=== PATIENT | male | born 1990 | race Asian ===

== ENCOUNTER 2022-12-04 08:46 | Emergency (ER) | payer SELFPAY ==
[2022-12-04] VITALS (21 sets, daily range): BP systolic 109–133; BP diastolic 70–97; PULSE 62–92; RESP 12–22; TEMP 36.8; O2SAT 91–100
--- NOTE | ~2022-12-04 | XR_ITS ---
EXAMINATION: XR chest 1V portable 12/04/2022 09:17 INDICATION: Shortness of breath PROCEDURE: AP portable chest COMPARISON: No prior studies for comparison. FINDINGS: The lungs are clear. The cardiomediastinal silhouette is within normal limits. There are no pleural effusions. There is no pneumothorax suspected. IMPRESSION: 1: NO ACUTE CARDIOPULMONARY DISEASE. Reviewed, dictated and finalized at location [facility].
--- NOTE | 2022-12-04 08:51 | ECG_ITS ---
Measurements Intervals [place] Rate: 69 P: 69 [place]: 144 QRS: 56 QRSD: 108 T: 33 QT: 369 QTc: 396 Interpretive Statements ALTERNATE LEAD PLACEMENT: Posterior V1: V7, V2: V8, V3: V9, V4: V4, V5: V5, V6: V6 SINUS RHYTHM BASELINE ARTIFACT- V7 ATYPICAL ECG NO PREVIOUS ECG AVAILABLE FOR COMPARISON Electronically Signed On 12-04-2022 11:41:08 CDT by Adolph Benedict D.O.
--- NOTE | 2022-12-04 08:55 | ED.AMS ---
HPI - Altered Mental Status General Chief Complaint: Shortness of Breath/Dyspnea Stated Complaint: resp distress Time Seen by Provider: 12/04/22 08:53 History of Present Illness HPI narrative: 32-year-old male presented emergency department for evaluation of worsening shortness of breath. Patient reports approximate 4 days ago he was diagnosed with influenza B. Patient states he was discharged home with albuterol breathing treatment but was able to use it this morning. Patient presented to [place] urgent care for complaints of worsening shortness of breath. Patient was found to be 68% on room air. EMS was called. EMS states patient was tenorio and ashen appearing upon arrival. Patient was treated with an albuterol neb and placed on oxygen. Upon arrival to emergency department patient states he does feel significantly improved. Patient was saturating at 98 to 100% on 2 L of oxygen by nasal cannula. Patient states he does feel improved. Patient denies any prior significant past medical history. 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 Review of Systems Review of Systems: All systems reviewed & are unremarkable except as noted in HPI and below Exam Narrative: APPEARANCE: Well appearing, no pain, no distress, well-nourished. HEAD: normocephalic, atraumatic. EYES: PERRLA/EOMI, conjunctivae clear. NOSE: Normal no drainage EARS:TMS clear with good light reflex. THROAT: Pharynx clear, no exudate. NECK: Supple. No adenopathy, no masses. RESPIRATORY: Airway patent, respirations nonlabored. Inspiratory and expiratory wheeze on auscultation CARDIOVASCULAR: Regular rate and rhythm without murmurs rubs or gallops. ABDOMINAL: Soft, nontender, nondistended, normal bowel sounds MUSCULOSKELETAL: Moves all extremities. Strength/ROM intact, No edema, No calf tenderness. NEURO: Alert. Cranial nerves II through XII intact. Good gait. Good coordination SKIN: Warm, dry. Normal Color Course Course Emergency Course: 32-year-old male with respiratory distress. Improved upon arrival to the ED. Chest x-ray was ordered. Patient was ordered 5 mg of nebulized albuterol. Patient was treated with additional albuterol treatment upon arrival to the ED and on reexamination patient dyspnea improved. Patient was maintaining a pulse ox of 96% on room air. When patient ambulated he states he had no shortness of breath and his pulse ox was approximately 93%. Patient was provided additional prescription for albuterol inhaler along with a AeroChamber. Patient was educated on reasons to return to the emergency room. All questions and concerns were addressed. Vital Signs Vital signs: Vital Signs Pulse Rate 83 12/04/22 08:51 Respiratory Rate 16 12/04/22 08:51 Pulse Oximetry 100 12/04/22 08:51 Temperature 98.3 F 12/04/22 09:03 Pulse Rate 62 12/04/22 11:46 Respiratory Rate 15 12/04/22 11:46 Blood Pressure 109/70 12/04/22 11:46 Pulse Oximetry 95 12/04/22 11:46 Oxygen Delivery High Flow Nasal Cannula 12/04/22 09:03 Oxygen Flow Rate 2 12/04/22 09:03 MDM - Altered Mental Status Lab Data Attestation: I reviewed the patient's lab results. 12/04/22 08:59 12/04/22 08:59 Labs: Lab Results 12/04/22 Range/Units 08:59 WBC 13.4 H (4.5-10.0) K/mm3 RBC 5.58 (4.6-6.20) M/mm3 Hgb 16.4 (14.0-18.0) g/dL Hct 48.5 (42.0-52.0) % MCV 86.9 (80-100) fl MCH 29.4 (26-34) pg MCHC 33.8 (32-36) g/dl RDW 12.2 (11.5-14.5) % Plt Count 273 (150-375) k/mm3 MPV 9.9 (7.4-10.4) fl Immature Gran % (Auto) 0.4 (0-0.5) % Neut % (Auto) 75.1 H (45.5-73.1) % Lymph % (Auto) 13.4 L (18.3-44.2) % [place] % (Auto) 4.7 (2.6-8.5) % Eos % (Auto) 5.9 H (0-4.4) % Baso % (Auto) 0.5 (0.2-1.2) % Lymph # (Auto) 1.79 (0.9-3.2) K/mm3 [place] # (Auto) 0.6 (0.1-0.6) K/mm3 Eos # (Auto) 0.8 H (0-0.3) K/mm3 Baso # (Auto)
[2022-12-04] MEDS: ALBUTEROL SULFATE NEB 2.5 MG/3 ML INH 5 MG INHALATION (08:58)
[2022-12-04 09:09] LABS: Basophils Absolute Auto 0.1 K/mm3 (0.0-0.1); Basophils Percent Auto 0.5 % (0.2-1.2); Eosinophils Absolute Auto 0.8 K/mm3 (0-0.3); Eosinophils Percent Auto 5.9 % (0-4.4); Hematocrit 48.5 % (42.0-52.0); Hemoglobin 16.4 g/dL (14.0-18.0); Immature Granulocyte Absolute 0.05 K/mm3 (0.00-0.031); Immature Granulocyte Percent A 0.4 % (0-0.5); Lymphocytes Absolute Auto 1.79 K/mm3 (0.9-3.2); Lymphocytes Percent Auto 13.4 % (18.3-44.2); Mean Corpuscular HGB Conc 33.8 g/dl (32-36); Mean Corpuscular Hemoglobin 29.4 pg (26-34); Mean Corpuscular Volume 86.9 fl (80-100); Mean Platelet Volume 9.9 fl (7.4-10.4); Monocytes Absolute Auto 0.6 K/mm3 (0.1-0.6); Monocytes Percent Auto 4.7 % (2.6-8.5); Neutrophils Percent Auto 75.1 % (45.5-73.1); Platelet Count Result 273 k/mm3 (150-375); Red Blood Count 5.58 M/mm3 (4.6-6.20); Red Cell Distribution Width 12.2 % (11.5-14.5); White Blood Count 13.4 K/mm3 (4.5-10.0)
[2022-12-04 09:20] LABS: Alanine Aminotransferase 16 U/L (6-50); Alkaline Phosphatase 115 U/L (38-126); Anion Gap 9 mmol/L (8-16); Aspartate Amino Transferase 31 U/L (17-59); Bilirubin,Total 0.9 mg/dL (0.2-1.3); Blood Urea Nitrogen 8 mg/dL (9-20); Carbon Dioxide 29 mmol/L (22-30); Chloride 101 mmol/L (98-107); Estimated CRCL calculation 103 ml/min; Estimated Glomerular Filt Rate > 60; Glucose 117 mg/dL (65-110); Potassium 4.2 mmol/L (3.4-5.0); Sodium 139 mmol/L (137-145)
[2022-12-04 09:43] LABS: Influenza A QL RT-PCR Negative (Negative); Influenza B QL RT-PCR Negative (Negative); RSV RNA, RT-PCR Negative (Negative); SARS-CoV-2 RNA PCR Negative (Negative)
--- NOTE | 2022-12-04 11:59 | PC.NURSE ---
ambulation pulse ox 92%. pt states he feels much better and less SOB than when he came in.
== END 2022-12-04 12:34 | disposition home or self-care (01) ==
PROVIDERS: Emergency Provider Emergency Medicine
DX: J10.1 Influenza due to other identified influenza virus with other respiratory manifestations (principal); R06.2 Wheezing; Z20.822 Contact with and (suspected) exposure to COVID-19
CPT/HCPCS: 36415; 71045; 80053; 85025; 87637; 93005; 94640; 94664; 99283

== ENCOUNTER 2022-12-06 00:46 | Inpatient (IN) | payer SELFPAY ==
--- NOTE | 2022-12-04 08:51 | ECG_ITS ---
Measurements Intervals [place] Rate: 82 P: 76 [place]: 141 QRS: 72 QRSD: 97 T: 32 QT: 358 QTc: 418 Interpretive Statements SINUS RHYTHM POSSIBLE LEFT ATRIAL ENLARGEMENT BASELINE ARTIFACT- I, II, AVR, AVL, AVF, V1 BORDERLINE ECG NO PREVIOUS ECG AVAILABLE FOR COMPARISON Electronically Signed On 12-09-2022 8:28:31 CDT by Adolph Benedict D.O.
[2022-12-06] VITALS (27 sets, daily range): BP systolic 104–145; BP diastolic 60–85; PULSE 71–106; RESP 13–34; TEMP 35.8–36.6; O2SAT 80–100
--- NOTE | ~2022-12-06 | XR_ITS ---
EXAMINATION: XR chest 1V portable 12/06/2022 03:38 INDICATION: Dyspnea PROCEDURE: AP portable chest COMPARISON: 12/04/2022 FINDINGS: The lungs are clear. The cardiomediastinal silhouette is within normal limits. There are no pleural effusions. There is no pneumothorax suspected. IMPRESSION: 1: NO ACUTE CARDIOPULMONARY DISEASE. Reviewed, dictated and finalized at location [facility].
--- NOTE | 2022-12-06 00:56 | ECG_ITS ---
Measurements Intervals [place] Rate: 90 P: 79 [place]: 140 QRS: 76 QRSD: 97 T: 40 QT: 364 QTc: 447 Interpretive Statements SINUS RHYTHM WITH SINUS ARRHYTHMIA BASELINE ARTIFACT- I, II, III, AVL, AVF, V2 NORMAL ECG COMPARED TO ECG 12/04/2022 11:28:34 SINUS ARRHYTHMIA NOW PRESENT Electronically Signed On 12-06-2022 8:03:17 CDT by Adolph Benedict D.O.
[2022-12-06] MEDS: SODIUM CHLORIDE 0.9% IV 2,000 ML 999 ML IV CONT (00:59)
[2022-12-06] MEDS: ALBUTEROL SULFATE NEB 2.5 MG/3 ML INH 10 MG INHALATION ×2 (01:00→01:51)
[2022-12-06] MEDS: EPINEPHrine HCL INJ 1 MG/ML AMPUL 0.3 MG IM (01:00)
[2022-12-06] MEDS: MAGNESIUM SULF 2 GM/WATER 50ML 2 GM/50 ML BAG IVPB (01:01)
[2022-12-06] MEDS: IPRATROPIUM BR 0.02% INH SOLN 0.5 MG/2.5 ML VIAL 1 MG INHALATION (01:01)
[2022-12-06 01:04] LABS: Basophils Absolute Auto 0.1 K/mm3 (0.0-0.1); Basophils Percent Auto 0.5 % (0.2-1.2); Eosinophils Absolute Auto 0.5 K/mm3 (0-0.3); Eosinophils Percent Auto 2.1 % (0-4.4); Hemoglobin 17.6 g/dL (14.0-18.0); Immature Granulocyte Absolute 0.11 K/mm3 (0.00-0.031); Immature Granulocyte Percent A 0.5 % (0-0.5); Lymphocytes Absolute Auto 2.14 K/mm3 (0.9-3.2); Lymphocytes Percent Auto 9.4 % (18.3-44.2); Mean Corpuscular HGB Conc 33.8 g/dl (32-36); Mean Corpuscular Hemoglobin 29.6 pg (26-34); Mean Corpuscular Volume 87.4 fl (80-100); Mean Platelet Volume 9.9 fl (7.4-10.4); Monocytes Absolute Auto 1.1 K/mm3 (0.1-0.6); Neutrophils Absolute Auto 18.7 K/mm3 (1.3-6.7); Neutrophils Percent Auto 82.5 % (45.5-73.1); Platelet Count Result 352 k/mm3 (150-375); Red Blood Count 5.95 M/mm3 (4.6-6.20); Red Cell Distribution Width 12.3 % (11.5-14.5); White Blood Count 22.7 K/mm3 (4.5-10.0)
[2022-12-06 01:10] LABS: Alveolar/Arterial O2 Gradient 132.9 mmHg; Base Excess ABG -3.9 mEq/l (+/-2.0); Fractional Inspired Oxygen 100 %; HCO3 ABG 23.1 mEq/l (22.0-26.0); Oxygen Saturation ABG 99.9 % (95.0-100.0); Oxyhemoglobin 98.1 % THb (90.0-100.0); PCO2 ABG 49.1 mmHg (35.0-45.0); PO2 FiO2 Ratio Arterial Blood 5.31 %; Total Hemoglobin 16.4 g/dL (12.0-18.0)
[2022-12-06 01:12] LABS: Device NON-INVASIVE VENT; Modified Allen's Test Pass; Non-Invasive Inspiratory Pressure 16 CMH2O; Non-Invasive Vent Rate 12 /MIN; Site Drawn RIGHT RADIAL; pH ABG 7.291 (7.350-7.450)
[2022-12-06 01:13] LABS: Non-Invasive Expiratory Pressure 6 CMH2O
[2022-12-06 01:15] LABS: Anion Gap 10 mmol/L (8-16); Blood Urea Nitrogen 10 mg/dL (9-20); Calcium 9.5 mg/dL (8.4-10.2); Carbon Dioxide 30 mmol/L (22-30); Chloride 99 mmol/L (98-107); Estimated Glomerular Filt Rate > 60; Glucose 133 mg/dL (65-110); Potassium 4.2 mmol/L (3.4-5.0); Sodium 139 mmol/L (137-145)
--- NOTE | 2022-12-06 03:00 | ED.GENADULT ---
HPI - General Adult General Chief complaint: Shortness of Breath/Dyspnea Stated complaint: SOB, asthma Time Seen by Provider: 12/06/22 01:06 History of Present Illness HPI narrative: This is a 32-year-old male history of asthma presenting to ED in respiratory extremis. One word dyspnea. Patient was seen in our hospital 2 days ago for similar symptoms after being diagnosed with influenza B and an outside facility. Related Data Allergies Allergy/AdvReac Type Severity Reaction Status Date / Time No Known Allergies Allergy Verified 12/06/22 01:14 [facility] Past Medical History Medical History Asthma Exam Narrative: APPEARANCE: Patient is pale diaphoretic, one-word dyspnea Head: atraumatic. EYES: EOMI, NOSE: Atraumatic NECK: Trachea midline RESPIRATORY: accessory muscle use, belly breathing, tripoding, wheezing in all hill CARDIOVASCULAR: tachycardic ABDOMINAL: Non-distended MUSCULOSKELETAl: No obvious deformities NEURO: Alert. Moving 4/4 extremities SKIN:: clammy and diaphoretic PSYCHIATRIC: Normal affect Course Vital Signs Vital signs: Vital Signs Temperature 98 F 12/06/22 00:53 Pulse Rate 94 12/06/22 00:53 Respiratory Rate 32 H 12/06/22 00:53 Pulse Oximetry 80 L 12/06/22 00:53 Oxygen Delivery Room Air 12/06/22 00:53 Temperature 98 F 12/06/22 00:53 Pulse Rate 100 12/06/22 03:25 Respiratory Rate 21 H 12/06/22 03:25 Blood Pressure 142/84 H 12/06/22 03:25 Pulse Oximetry 100 12/06/22 03:25 Oxygen Delivery Nasal Cannula 12/06/22 03:25 Oxygen Flow Rate 3 12/06/22 03:25 Medical Decision Making [facility] Narrative Medical decision making narrative: -Presentation: 32-year-old male presenting in respiratory extremis. Patient was immediately given 0.3 mg IM epi, given continuous nebulizer treatments, dexamethasone, and magnesium. Patient was placed on BiPAP. -DDX includes but is not limited to: Asthma exacerbation due to medication noncompliance, viral syndrome -Co-morbidities complicating care: asthma -Social determinants of health: patient works at [employer], lives with roommates -External Chart Review: review of ER notes from December 04, 2022 -Hx from independent Sources: patient's roommate states that he had sudden onset of shortness of breath. -Discussion of Management/Consultants: Antony-hospitalist -Independent interpretation of studies: white blood cell count of 22.7. likely due to steroids. ABG showed acute respiratory acidosis with hyperoxia Oxygen has been decreased. metabolic panel unremarkable. Chest x-ray is unremarkable. Independent EKG interpretation: Rhythm [sinus], Rate [90], [place] -[normal], [place] -[normal], QRS [narrow], QTC [normal], T waves -[negative for concerning inversions], ST Segments - [Negative for concerning elevations] Final interpretations: [Normal Sinus Rhythm] Dx tests considered but not ordered: none -Procedures: none -Interventions: BiPAP, 0.3 mg IM epi, DuoNeb nebulizer treatment x2 hours, 2g magnesium, dexamethasone, 2 L normal saline -Shared decision making / Disposition: after 2 hours the patient's condition had improved. He will be trialed off of the BiPAP. Patient will placed in observation. -RX Vital Signs Vital Signs: Vital Signs Temperature 98 F 12/06/22 00:53 Pulse Rate 94 12/06/22 00:53 Respiratory Rate 32 H 12/06/22 00:53 Pulse Oximetry 80 L 12/06/22 00:53 Oxygen Delivery Room Air 12/06/22 00:53 Temperature 98 F 12/06/22 00:53 Pulse Rate 100 12/06/22 03:25 Respiratory Rate 21 H 12/06/22 03:25 Blood Pressure 142/84 H 12/06/22 03:25 Pulse Oximetry 100 12/06/22 03:25 Oxygen Delivery Nasal Cannula 12/06/22 03:25 Oxygen Flow Rate 3 12/06/22 03:25 Lab Data 12/06/22 00:58 12/06/22 00:58 Labs: Lab Results 12/06/22 12/06/22 Range/Units 00:58 01:01
[2022-12-06] MEDS: LACTATED RINGERS 1,000 ML 125 ML IV CONT ×2 (04:15→12:02)
--- NOTE | 2022-12-06 05:20 | ADMGEN ---
This patient, Rylie Nathan, was admitted to [facility] Surg Room 329-01. Patient/family oriented to hospital policies and general routines including ID bracelet, bed and alarms, visiting hours, pain management, procedures, bathroom and other care routines, personal items, smoking policy, room service/diet, and visiting hours. Information on how to activate the Rapid Response Team has been discussed. Patient/Family are encouraged to report perceived risks to care and to ask questions if they do not understand what they are told or what they should do.
[2022-12-06] MEDS: methylPREDNISolone SOD SUCC 125 MG VIAL 60 MG IV PUSH ×4 (06:09→23:13)
[2022-12-06] MEDS: ALBUTEROL SULFATE NEB 2.5 MG/3 ML INH INHALATION ×2 (08:19→20:01)
[2022-12-06] MEDS: IPRATROPIUM BR 0.02% INH SOLN 0.5 MG/2.5 ML VIAL INHALATION ×2 (08:19→20:01)
--- NOTE | 2022-12-06 14:59 | PM.IMHP ---
H&P: HPI History of Present Illness Date/Time: 12/06/22 14:59 Chief Complaint: Dyspnea Narrative: Patient is a 32-year-old male with no past medical history who presents to ED with complaints of dyspnea. Patient recently was diagnosed with influenza B on 11/30/2022 at an outpatient visit. he then presented on 12/04/2022 at [facility] and was found to have 68% O2 saturation on room air and sent to the ED. During the 12/04/2022 ER visit patient's labs are stable, flu negative, RSV negative, COVID negative, chest x-ray negative, was weaned to room air. he was discharged home with a p.r.n. albuterol inhaler. He returns on 12/06/2022 with dyspnea and wheezing. patient now has a negative chest x-ray, leukocytosis at 22,000 likely from steroids, given treatment with BiPAP, DuoNebs x2, magnesium 2 g, dexamethasone, 2 L normal saline. He has been weaned to 2 L oxygen by nasal cannula. Patient will continue q.6 hours DuoNeb, Solu-Medrol 60 mg Q 6 hours and being admitted for observation for further management of acute asthma exacerbation secondary to influenza B. of note patient has no family history of pulmonary issues. He started smoking at age of 23 1-2 cigarettes per day. he does not have a PCP. 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 he denies any chemical exposures. He is originally from [facility]. He does not report any childhood asthma or breathing problems. Review of Systems Review of Systems: Constitutional: No Fever, No Chills, No Night Sweats, No Fatigue, No Malaise ENT/Mouth: No Hearing Changes, No Ear Pain, No Nasal Congestion, No Sinus Pain, No Hoarseness, No sore throat, No Rhinorrhea, No Swallowing Difficulty Eyes: No Eye Pain, No Redness, No Vision Changes Cardiovascular: No Chest Pain, No Palpitations, No Dyspnea on Exertion, No Orthopnea, No Claudication, No Edema Respiratory: endorses dyspnea, wheezing Gastrointestinal: No Nausea, No Vomiting, No Diarrhea, No Constipation, No Abdominal Pain, No Heartburn, No Hematochezia, No Melena Genitourinary: No Dysuria, No Urinary Frequency, No Hematuria, No Urinary Incontinence, No Urgency Musculoskeletal: No Arthralgias, No Myalgias, No Joint Swelling, No Joint Stiffness, No Back Pain Skin: No Skin Lesions, No Pruritis, No Hair Changes Neuro: No Weakness, No Numbness, No Paresthesias, No Loss of Consciousness, No Syncope, No Dizziness, No Headache Psych: No Anxiety/Panic, No Depression, No Insomnia Heme: No Bruising, No Bleeding Lymph: No Adenopathy Endocrine: No Polyuria, No Polydipsia, No Temperature Intolerance [facility] Past Medical History Medical History Asthma Social History Social History Smoking packs per day: 0.25 Smoking cigarettes per day: 5.0 Smoking status: Former smoker Tobacco type: cigarettes Smoking end date: 10/24/22 Alcohol intake: never Substance use: never Lack of Transportation: YES Lack of Food: Never True Current Housing: I Have Housing Concerned About Future Housing: No Difficulty Paying Gas/Electric Bills: No Difficulty Paying for Meds: No Currently Unemployed: No Education: Trade/Vocational Certificate Difficulty w/ Childcare or Family Care: No Spiritual care concerns: No Comments occupation: [employer] Meds Home Medications and Allergies Home Medications Medication Instructions Recorded Confirmed Type albuterol sulfate 90 mcg/actuation 1 inh inhalation Q6-8H PRN 12/04/22 12/06/22 Rx aerosol inhaler shortness of breath or wheezing #6.7 grams Allergies Allergy/AdvReac Type Severity Reaction Status Date / Time No Known Allergies Allergy Verified 12/06/22 01:14 Vital Signs Vital Signs - 24 hr 12/06/22 00:53 12/06/22 00:55 12/06/22 00:56 Temperature 36.6 C Pulse Rate 94 Respiratory Rate 32 H Blood Pressure Pulse Oximetry 80 L 8
--- NOTE | 2022-12-06 17:47 | PC.NURSE ---
3675 PT found on RA stated he removed o2 before eating pulse ox measuring 93% on RA, no distress, no SOB
[2022-12-07 01:48] VITALS: PULSE 82; RESP 18
[2022-12-07] MEDS: IPRATROPIUM BR 0.02% INH SOLN 0.5 MG/2.5 ML VIAL INHALATION ×2 (01:48→09:05)
[2022-12-07] MEDS: ALBUTEROL SULFATE NEB 2.5 MG/3 ML INH INHALATION ×2 (01:48→09:05)
[2022-12-07 02:05] VITALS: PULSE 85; RESP 18
[2022-12-07 05:38] VITALS: BP 124/58; PULSE 82; RESP 14; TEMP 36.1; O2SAT 100
[2022-12-07] MEDS: methylPREDNISolone SOD SUCC 125 MG VIAL 60 MG IV PUSH (05:56)
[2022-12-07 06:43] LABS: Hematocrit 44.9 % (42.0-52.0); Hemoglobin 14.7 g/dL (14.0-18.0); Mean Corpuscular HGB Conc 32.7 g/dl (32-36); Mean Corpuscular Hemoglobin 28.6 pg (26-34); Mean Corpuscular Volume 87.4 fl (80-100); Mean Platelet Volume 10.5 fl (7.4-10.4); Platelet Count Result 258 k/mm3 (150-375); Red Blood Count 5.14 M/mm3 (4.6-6.20); White Blood Count 21.2 K/mm3 (4.5-10.0)
[2022-12-07 06:49] LABS: Anion Gap 10 mmol/L (8-16); Blood Urea Nitrogen 14 mg/dL (9-20); Carbon Dioxide 24 mmol/L (22-30); Chloride 104 mmol/L (98-107); Estimated Glomerular Filt Rate > 60; Glucose 149 mg/dL (65-110); Magnesium 2.5 mg/dL (1.6-2.3); Sodium 138 mmol/L (137-145)
[2022-12-07 09:05] VITALS: PULSE 80; RESP 16; O2SAT 93
[2022-12-07 09:17] VITALS: PULSE 83; RESP 16
--- NOTE | 2022-12-07 11:02 | PM.DS ---
DS: Admitting Diagnosis Discharge Date 12/07/22 Admitting Diagnosis Asthma exacerbation DS: Discharge Diagnosis Discharge Diagnosis (1) Asthma with exacerbation: Qualifiers: Asthma persistence: intermittent Asthma severity: mild Qualified Code(s): J45.21 - Mild intermittent asthma with (acute) exacerbation Code(s): J45.901 - Unspecified asthma with (acute) exacerbation Status: Acute Plan # acute asthma exacerbation secondary to? influenza B - no history of asthma, likely has asthma exacerbation secondary to influenza B that was diagnosed last week - in the ED received 2 L LR bolus, magnesium sulfate 2 g, dexamethasone 10 mg, epinephrine once, stat DuoNeb - repeat flu test negative, no indication for Tamiflu at this time - steroids: Continue Solu-Medrol 60 mg q.6 hours, will discharge with Medrol Dosepak - Rx Flovent inhaler and continue as needed albuterol rescue inhaler.? he will need to establish care with PCP and have outpatient PFTs - patient encouraged to have smoking cessation, smokes 1-2 cigarettes for the last 9 years - patient likely has mild intermittent asthma underlying as this is new asthma diagnosis - weaned to room air Diet:?Regular DVT prophylaxis:??ambulatory Code status:??full code Disposition:??home today DS: Summary Hospital Course Reason for hospitalization: Asthma exacerbation Hospital Course: Patient is a 32-year-old male with no past medical history who presents to ED with complaints of dyspnea.? Patient recently was diagnosed with influenza B on 11/30/2022 at an outpatient visit. he then presented on 12/04/2022? at [facility] and was found to have 68% O2 saturation on room air and sent to the ED. During the 12/04/2022 ER visit patient's labs are stable, flu negative, RSV negative, COVID negative, chest x-ray negative, was weaned to room air.? he was discharged home with a p.r.n. albuterol inhaler.? He returns on 12/06/2022 with dyspnea and wheezing.? patient now has a negative chest x-ray, leukocytosis at 22,000 likely from steroids, given treatment with BiPAP, DuoNebs x2, magnesium 2 g, dexamethasone,? 2 L normal saline.? He has been weaned to 2 L oxygen by nasal cannula.? Patient will continue q.6 hours DuoNeb, Solu-Medrol 60 mg Q 6 hours and being admitted for observation for further management of acute asthma exacerbation secondary to influenza B.? of note patient has no family history of pulmonary issues.? He started smoking at age of 23 1-2 cigarettes per day.? he does not have a PCP.? 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 he denies any chemical exposures.? He is originally from [facility].? He does not report any childhood asthma or breathing problems. Patient was hospitalized from 12/06-12/07 for asthma exacerbation. He had significant wheezing worse on the left lung which improved with IV steroids and nebulizer treatments. He has been weaned to room air. He will be sent home with Medrol Dosepak to complete steroid taper. Rx or Flovent given to prevent asthma exacerbation. He already has a rescue inhaler albuterol which he may continue as needed. We discussed importance of smoking cessation. patient to follow-up and establish care with PCP to have outpatient PFTs. At time of discharge patient's vitals stable, labs stable, patient is stable for discharge home. Patient understands and agrees with plan. Status at Discharge Cognitive/behavioral status at discharge: Baseline Time Spent with Patient Time attestation: Total time spent providing and/or coordinating discharge services: 35 min Exam Narrative: - GENERAL: Pleasant male no acute distress. Well-nourished. - EYES: EOMI. Anicteric. - HENT: Moist mucous membranes. - LUNGS: Clear to auscultation bilaterally, no wheezing, rhonchi, or rales. Breathing comfortably on room air - CARDIOVASCULAR: Regular rate and rhythm. No murmur. No JVD. - ABDOMEN: Soft, non-tender and non-distended. No palpable masses. - EXTREMITIES: No
== END 2022-12-07 12:30 | disposition home or self-care (01) | DRG 141 ==
LOC: ANHED 04:01 → ANH3MEDSUR 04:52
PROVIDERS: Admitting Provider Internal Medicine; Emergency Provider Emergency Medicine; Visit Provider Student in an Organized Health Care Education/Training Program
DX: J45.21 Mild intermittent asthma with (acute) exacerbation (principal); J10.1 Influenza due to other identified influenza virus with other respiratory manifestations; F17.210 Nicotine dependence, cigarettes, uncomplicated
CPT/HCPCS: 36415; 36600; 71045; 80048; 82805; 83735; 85025; 85027; 93005; 94002; 94640; 96361; 96365; 96372; 96375; 99285; G0378; J0171; J1100; J2930; J3475; J7030; J7120

== ENCOUNTER 2023-01-27 19:52 | Emergency (ER) | payer SELFPAY ==
[2023-01-27] VITALS (9 sets, daily range): BP systolic 117–143; BP diastolic 70–85; PULSE 75–100; RESP 20–25; O2SAT 100
--- NOTE | ~2023-01-27 | XR_ITS ---
XR chest 1V portable DATE: 01/27/2023 20:36 INDICATION: Dyspnea TECHNIQUE: Portable upright AP chest on 01/27/2023 at 2035 hours COMPARISON: 12/06/2022 portable AP chest FINDINGS: Normal heart size. No hilar or mediastinal enlargement. No pulmonary infiltrate or consolid ation, pleural effusion or pulmonary vascular congestion or pneumothorax. Mild thoracic dextroscoliosis. IMPRESSION: No active cardiopulmonary disease Reviewed, dictated and finalized at location A.
--- NOTE | 2023-01-27 20:09 | ECG_ITS ---
Measurements Intervals [place] Rate: 70 P: 79 [place]: 143 QRS: 75 QRSD: 98 T: 47 QT: 377 QTc: 408 Interpretive Statements SINUS RHYTHM WITH SINUS ARRHYTHMIA ST ELEVATION IN DIFFUSE LEADS, PROBABLY EARLY REPOLARIZATION BASELINE ARTIFACT- I, AVR, V4-V6 BORDERLINE ECG COMPARED TO ECG 12/06/2022 01:19:00 NO SIGNIFICANT CHANGES Electronically Signed On 01-27-2023 21:40:46 CDT by Adolph Benedict D.O.
[2023-01-27] MEDS: SODIUM CHLORIDE 0.9% IV 1,000 ML 999 ML IV CONT (20:18)
[2023-01-27] MEDS: MAGNESIUM SULF 2 GM/WATER 50ML 2 GM/50 ML BAG IVPB (20:19)
[2023-01-27] MEDS: ALBUTEROL SULFATE NEB 2.5 MG/3 ML INH 10 MG INHALATION ×2 (20:27→23:07)
[2023-01-27] MEDS: IPRATROPIUM BR 0.02% INH SOLN 0.5 MG/2.5 ML VIAL 1.5 MG INHALATION ×2 (20:27→23:08)
[2023-01-27 20:43] LABS: Basophils Absolute Auto 0.1 K/mm3 (0.0-0.1); Basophils Percent Auto 0.6 % (0.2-1.2); Eosinophils Absolute Auto 0.4 K/mm3 (0-0.3); Eosinophils Percent Auto 4.6 % (0-4.4); Hematocrit 46.6 % (42.0-52.0); Hemoglobin 15.6 g/dL (14.0-18.0); Immature Granulocyte Absolute 0.02 K/mm3 (0.00-0.031); Immature Granulocyte Percent A 0.2 % (0-0.5); Lymphocytes Absolute Auto 1.72 K/mm3 (0.9-3.2); Lymphocytes Percent Auto 17.9 % (18.3-44.2); Mean Corpuscular HGB Conc 33.5 g/dl (32-36); Mean Corpuscular Volume 86.6 fl (80-100); Monocytes Absolute Auto 0.4 K/mm3 (0.1-0.6); Neutrophils Percent Auto 72.7 % (45.5-73.1); Platelet Count Result 242 k/mm3 (150-375); Red Blood Count 5.38 M/mm3 (4.6-6.20); Red Cell Distribution Width 12.2 % (11.5-14.5); White Blood Count 9.6 K/mm3 (4.5-10.0)
[2023-01-27 20:55] LABS: Anion Gap 9 mmol/L (8-16); Blood Urea Nitrogen 11 mg/dL (9-20); Calcium 8.9 mg/dL (8.4-10.2); Carbon Dioxide 27 mmol/L (22-30); Chloride 102 mmol/L (98-107); Estimated Glomerular Filt Rate > 60; Glucose 104 mg/dL (65-110); Potassium 3.7 mmol/L (3.4-5.0); Sodium 138 mmol/L (137-145)
--- NOTE | 2023-01-27 22:48 | ED.GENADULT ---
HPI - General Adult General Chief complaint: Asthma Stated complaint: asthma Time Seen by Provider: 01/27/23 20:06 History of Present Illness HPI narrative: This is a 33-year-old male with history of asthma presenting with the asthma exacerbation. Patient has been having worsening difficulty breathing over the last 2 days. He has been using his albuterol inhaler without improvement. He denies fever chills productive cough or chest pain. Patient has a rescue inhaler but no maintenance medications. Related Data Allergies Allergy/AdvReac Type Severity Reaction Status Date / Time No Known Allergies Allergy Verified 01/27/23 19:52 [facility] Past Medical History Medical History Asthma Social History Social History Smoking packs per day: 0.25 Smoking cigarettes per day: 5.0 Smoking status: Former smoker Tobacco type: cigarettes Smoking end date: 10/24/22 Alcohol intake: never Substance use: never Lack of Transportation: YES Lack of Food: Never True Current Housing: I Have Housing Concerned About Future Housing: No Difficulty Paying Gas/Electric Bills: No Difficulty Paying for Meds: No Currently Unemployed: No Education: Trade/Vocational Certificate Difficulty w/ Childcare or Family Care: No Spiritual care concerns: No Exam Narrative: APPEARANCE: 3-4 word dyspnea Head: atraumatic. EYES: EOMI, NOSE: Atraumatic NECK: Trachea midline RESPIRATORY: diffuse wheezing, tripoding CARDIOVASCULAR: RRR, ABDOMINAL: Non-distended MUSCULOSKELETAl: No obvious deformities NEURO: Alert. Moving 4/4 extremities SKIN:: Warm, dry. Normal color PSYCHIATRIC: Normal affect Course Vital Signs Vital signs: Vital Signs Pulse Rate 87 01/27/23 20:05 Respiratory Rate 25 H 01/27/23 20:05 Blood Pressure 134/81 01/27/23 20:05 Pulse Oximetry 100 01/27/23 20:05 Oxygen Delivery Nasal Cannula 01/27/23 20:05 Oxygen Flow Rate 2 01/27/23 20:05 Pulse Rate 96 01/28/23 00:01 Respiratory Rate 18 01/28/23 00:01 Blood Pressure 138/85 01/27/23 21:16 Pulse Oximetry 100 01/27/23 21:16 Oxygen Delivery Nasal Cannula 01/27/23 20:05 Oxygen Flow Rate 2 01/27/23 20:05 Medical Decision Making [facility] Narrative Medical decision making narrative: -Presentation: 33-year-old male is well known to our emergency department for frequent asthma exacerbations presenting with difficulty breathing. He is having 3-4 word dyspnea and is tripoding. Patient is given an hour long breathing treatment, magnesium and dexamethasone. 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 Metabolic panel unremarkable. Chest x-ray unremarkable. Independent EKG interpretation: Rhythm [sinus], Rate 70, [place] -[normal], [place] -[normal], QRS [narrow], QTC [normal], T waves -[negative for concerning inversions], ST Segments - [Negative for concerning elevations] Final interpretations: [Normal Sinus Rhythm] -Discussion of Management/Consultants: none -Dx tests considered but not ordered: none -Procedures: none -Interventions: hour long DuoNeb treatment, magnesium, dexamethasone, 1 L fluids -Shared decision making / Disposition: Patient was re-evaluated multiple times. After 1st treatment he was still wheezing. He was given another hour long treatment. After that he was clinically improved but still has some wheezing. I offered admission and he declined. He has been encouraged to return to the emergency department if he starts having difficulty breathing as opposed to waiting till
--- NOTE | 2023-01-27 23:10 | PC.NURSE ---
This RN assumed care of patient.
[2023-01-28 00:01] VITALS: PULSE 96; RESP 18
[2023-01-28 01:11] VITALS: PULSE 92; RESP 18; O2SAT 96
[2023-01-28 01:18] VITALS: PULSE 92; RESP 19; O2SAT 97
== END 2023-01-28 01:28 | disposition home or self-care (01) ==
PROVIDERS: Emergency Provider Emergency Medicine
DX: J45.901 Unspecified asthma with (acute) exacerbation (principal); Z87.891 Personal history of nicotine dependence
CPT/HCPCS: 36415; 71045; 80048; 85025; 93005; 94640; 96361; 96365; 96375; 99284; J1100; J3475; J7030

== ENCOUNTER 2023-11-21 07:06 | Emergency (ER) | payer SELFPAY ==
--- NOTE | ~2023-11-21 | XR_ITS ---
XR chest 1V portable DATE: 11/21/2023 07:51 INDICATION: Cough, shortness of breath, congestion for one week TECHNIQUE: Portable AP chest on November 21, 2023 at 0750 hours COMPARISON: 01/27/2023 portable AP chest at 2034 FINDINGS: Normal heart size. No hilar or mediastinal enlargement. No pulmonary infiltrate or consolid ation, pleural effusion or pulmonary vascular congestion or pneumothorax. IMPRESSION: No active cardiopulmonary disease Reviewed, dictated and finalized at location A.
[2023-11-21 07:11] VITALS: BP 112/86; PULSE 68; RESP 16; TEMP 36.4; O2SAT 99
--- NOTE | 2023-11-21 07:51 | ED.EYEPROB ---
HPI - Eye Problem General Chief complaint: Eye Problems Stated complaint: l eye redness Time Seen by Provider: 11/21/23 07:11 History of Present Illness HPI Narrative: 33-year-old male presenting to the emergency department for evaluation of multiple complaints. Patient does describe redness and irritation of his left eye. Patient also describes increased cough congestion and shortness of breath over the last week. Patient states he is no longer smoker and has no prior history of asthma but does describe seasonal allergies. Patient does not take anything for his seasonal allergies. Related Data Allergies Allergy/AdvReac Type Severity Reaction Status Date / Time No Known Allergies Allergy Verified 11/21/23 07:14 Review of Systems Review of Systems: All systems reviewed & are unremarkable except as noted in HPI and below PMFSH Past Medical History Medical History Asthma Social History Social History Smoking packs per day: 0.25 Smoking cigarettes per day: 5.0 Smoking status: Former smoker Tobacco type: cigarettes Smoking end date: 10/24/22 Alcohol intake: never Substance use: never Lack of Transportation: YES Lack of Food: Never True Current Housing: I Have Housing Concerned About Future Housing: No Difficulty Paying Gas/Electric Bills: No Difficulty Paying for Meds: No Currently Unemployed: No Education: Trade/Vocational Certificate Difficulty w/ Childcare or Family Care: No Spiritual care concerns: No Exam Narrative: APPEARANCE: Well appearing, no pain, no distress, well-nourished. HEAD: normocephalic, atraumatic. EYES: Conjunctiva injection of the left eye with no appearing discharge NOSE: Normal no drainage EARS:TMS clear with good light reflex. THROAT: Pharynx clear, no exudate. NECK: Supple. No adenopathy, no masses. RESPIRATORY: Airway patent, respirations nonlabored. Clear to auscultation bilaterally, no rales, rhonchi, wheezing. CARDIOVASCULAR: Regular rate and rhythm without murmurs rubs or gallops. ABDOMINAL: Soft, nontender, nondistended, normal bowel sounds MUSCULOSKELETAL: Moves all extremities. Strength/ROM intact, No edema, No calf tenderness. NEURO: Alert. Cranial nerves II through XII intact. Grossly intact SKIN: Warm, dry. Normal Color Course Vital Signs Vital signs: Vital Signs Temperature 97.6 F 11/21/23 07:11 Pulse Rate 68 11/21/23 07:11 Respiratory Rate 16 11/21/23 07:11 Blood Pressure 112/86 11/21/23 07:11 Pulse Oximetry 99 11/21/23 07:11 Oxygen Delivery Room Air 11/21/23 07:11 Temperature 97.6 F 11/21/23 07:11 Pulse Rate 72 11/21/23 08:12 Respiratory Rate 16 11/21/23 08:12 Blood Pressure 112/86 11/21/23 07:11 Pulse Oximetry 99 11/21/23 07:11 Oxygen Delivery Room Air 11/21/23 07:11 MDM - Eye Problem MDM Narrative Medical decision making narrative: 33-year-old male presented to the emergency department for evaluation for cough congestion and eye irritation. Left eye irritation and is being treated as a bacterial conjunctivitis. Patient had a small amount of wheeze on his exam and this was improved with a breathing treatment. Patient was prescribed albuterol inhaler, advised to take Zyrtec or Claritin for seasonal allergies and patient was started on antibiotic ointment for suspected conjunctivitis. Patient was encouraged to have close follow-up with primary care physician. All questions concerns were addressed. Differential Diagnosis Differential diagnosis: Likely corneal abrasion and conjunctivitis Lab Data Attestation: I reviewed the patient's lab results. Labs: Lab Results 11/21/23 Range/Units 07:36 Influenza A (RT-PCR) Negative (Negative) Influenza B (RT-PCR) Negative (Negative) RSV (RT-PCR) Negative (Negative) SARS-CoV-2 RNA (RT-PCR) Negative
[2023-11-21] MEDS: ALBUTEROL SULFATE NEB 2.5 MG/3 ML INH INHALATION (07:52)
[2023-11-21 07:54] VITALS: PULSE 60; RESP 18
[2023-11-21 08:12] VITALS: PULSE 72; RESP 16
[2023-11-21 08:19] LABS: Strep Group A RT-PCR NOT DETECTED (Negative)
[2023-11-21 08:30] LABS: Influenza A QL RT-PCR Negative (Negative); Influenza B QL RT-PCR Negative (Negative); RSV RNA, RT-PCR Negative (Negative); SARS-CoV-2 RNA PCR Negative (Negative)
== END 2023-11-21 09:12 | disposition home or self-care (01) ==
PROVIDERS: Emergency Provider Emergency Medicine
DX: H10.9 Unspecified conjunctivitis (principal); J45.909 Unspecified asthma, uncomplicated
CPT/HCPCS: 71045; 87637; 87651; 94640; 99283

== ENCOUNTER 2023-11-24 22:36 | Inpatient (IN) | payer SELFPAY ==
[2023-11-24] VITALS (8 sets, daily range): BP systolic 117–135; BP diastolic 77–95; PULSE 90–96; RESP 19–24; O2SAT 91–100
--- NOTE | ~2023-11-24 | XR_ITS ---
Portable chest x-ray Comparison: 11/21/2023 Clinical History: Dyspnea Findings: Lungs are clear, without focal consolidation or pleural effusion. Cardiomediastinal silho uette is stable. Bones and soft tissues are unremarkable. Impression: Normal chest. Reviewed, dictated and finalized at location . Impression: Normal chest.
--- NOTE | 2023-11-24 22:43 | PC.NURSE ---
Patient taking shallow short breaths during intake and can only speak 1-2 words at a time. Oxygen 87%-92% of room. Patient immediately taken back to ED room 1.
[2023-11-24] MEDS: IPRATROPIUM 0.5 MG/ALBUTEROL SULFATE 2.5 MG AMPUL.NEB 3 ML 12 ML INHALATION (22:55)
[2023-11-24] MEDS: dexAMETHasone SOD PHOS INJ 10 MG/ML 1 ML VIAL IV PUSH (23:02)
[2023-11-24] MEDS: MAGNESIUM SULF 2 GM/WATER 50ML 2 GM/50 ML BAG IVPB (23:02)
--- NOTE | 2023-11-24 23:30 | ED.SOB ---
HPI - SOB/Dyspnea General Chief Complaint: Shortness of Breath/Dyspnea Stated Complaint: sob Time Seen by Provider: 11/24/23 23:23 History of Present Illness HPI Narrative: 33-year-old male with history of asthma presents to the emergency department for congestion and eye redness for 4 days with shortness of breath that developed this evening. Patient states he gets similar symptoms every spring and fall. He states that his eyes have been red and itchy and have some crusting in the morning when he wakes up. He denies eye pain, vision changes, headache, pain with extraocular movements, foreign body sensation. States he has been using his inhaler with some relief. He does not have a cough, sore throat, otalgia, fever. He does not wear contacts. Related Data Allergies Allergy/AdvReac Type Severity Reaction Status Date / Time No Known Allergies Allergy Verified 11/21/23 07:14 Review of Systems Review of Systems: CONSTITUTIONAL: Denies fever, chills, or sweats. EYES: Denies visual changes, redness, or discharge. ENT: See HPI CARDIOVASCULAR: Denies chest pain, palpitations, or edema. RESPIRATORY: See HPI GASTROINTESTINAL: Denies abdominal pain, nausea, vomiting, or diarrhea. GENITOURINARY: Denies dysuria or hematuria. SKIN: Denies rash or itching. MUSCULOSKELETAL: Denies back pain, joint pain, or myalgia. NEUROLOGIC: Denies headache, numbness, or weakness. PSYCHIATRIC: Denies anxiety or depression. FORMERLY [facility], 1928–1983 Past Medical History Medical History Asthma Social History Social History Smoking packs per day: 0.2 Smoking cigarettes per day: 4.0 Years smoked: 8 Smoking pack-years: 1.60 Smoking status: Former smoker Tobacco type: cigarettes Smoking end date: 10/24/22 Alcohol intake: never Substance use: never Do You Feel Safe in your Home?: Yes Lack of Transportation: No Lack of Food: Never True Current Housing: I Have Housing Concerned About Future Housing: No Difficulty Paying Gas/Electric Bills: No Difficulty Paying for Meds: No Currently Unemployed: No Education: High School Diploma/GED Difficulty w/ Childcare or Family Care: No Spiritual care concerns: No Exam Narrative: GENERAL: Well-appearing, well-nourished, and in no acute distress. HEAD: Normocephalic, atraumatic. EYES: PERRLA and EOMI. Bilateral conjunctivae erythematous and injected. No ciliary flush. No foreign body. Peripheral vision intact. Small amount of clear drainage bilaterally. No surrounding cellulitis or pain with EOMs. Fluorescein staining shows no lesions, ulcerations or abrasions to cornea. No foreign body. ENT: Nares clear, no rhinorrhea or epistaxis. Mucous membranes moist. Posterior pharynx with mild erythema, uvula midline, no tonsillar hypertrophy or exudates. Bilateral TMs are tenorio nonbulging with normal canals. NECK: Supple. CHEST: Patient satting 95-100% on room air upon my evaluation. He does have expiratory wheezing throughout all lung hill. No rales or rhonchi. HEART: Regular rate and rhythm. No murmur heard. Normal peripheral pulses. ABDOMEN: Soft, nontender, nondistended, normal active bowel sounds. EXTREMITIES: Normal range of motion. No edema. SKIN: Warm, dry, no rash. NEURO: No focal deficits. Alert and oriented x3 Course Vital Signs Vital signs: Vital Signs Pulse Rate 90 11/24/23 22:43 Respiratory Rate 19 11/24/23 22:43 Blood Pressure 135/77 11/24/23 22:43 Pulse Oximetry 93 11/24/23 22:43 Oxygen Delivery Nasal Cannula 11/24/23 22:43 Oxygen Flow Rate 2 11/24/23 22:43 Temperature 98.0 F 11/25/23 14:00 Pulse Rate 82 11/25/23 14:00 Respiratory Rate 16 11/25/23 14:00 Blood Pressure 136/82 11/25/23 14:00 Pulse Oximetry 96 11/25/23 14:00 Oxygen Delivery Room Air 11/25/23 08:00 Oxygen Flow Rate 2 11/24/23 22:43
[2023-11-25] VITALS (18 sets, daily range): BP systolic 119–136; BP diastolic 74–100; PULSE 76–104; RESP 16–20; TEMP 36.1–36.7; O2SAT 90–96; BMI 22.6
[2023-11-25] MEDS: FLUORESCEIN SOD 1 MG/STRIP EACH EYE (00:10)
[2023-11-25] MEDS: TETRACAINE HCL 0.5% OPHTH SOLN 4 ML BTL 1 DROP EACH EYE (00:10)
[2023-11-25 00:48] LABS: Influenza A QL RT-PCR Negative (Negative); Influenza B QL RT-PCR Negative (Negative); RSV RNA, RT-PCR Negative (Negative); SARS-CoV-2 RNA PCR Negative (Negative)
--- NOTE | 2023-11-25 01:10 | ECG_ITS ---
SEE SCANNED COPY FOR CONFIRMED REPORT. MTDD
[2023-11-25 01:25] LABS: Alveolar/Arterial O2 Gradient 43.7 mmHg; Base Excess ABG -1.1 mEq/l (+/-2.0); Fractional Inspired Oxygen 21 %; HCO3 ABG 23.3 mEq/l (22.0-26.0); Oxygen Content ABG 19.5 %vol (16.0-22.0); Oxygen Saturation ABG 91.5 % (95.0-100.0); PCO2 ABG 37.9 mmHg (35.0-45.0); PO2 ABG 60.6 mmHg (80.0-100.0); PO2 FiO2 Ratio Arterial Blood 2.89 %; Total Hemoglobin 15.4 g/dL (12.0-18.0); pH ABG 7.406 (7.350-7.450)
[2023-11-25 01:33] LABS: Basophils Absolute Auto 0.1 K/mm3 (0.0-0.1); Basophils Percent Auto 0.3 % (0.2-1.2); Eosinophils Absolute Auto 0.3 K/mm3 (0-0.3); Eosinophils Percent Auto 1.6 % (0-4.4); Hematocrit 44.3 % (42.0-52.0); Hemoglobin 15.2 g/dL (14.0-18.0); Immature Granulocyte Absolute 0.06 K/mm3 (0.00-0.031); Immature Granulocyte Percent A 0.4 % (0-0.5); Lymphocytes Absolute Auto 1.06 K/mm3 (0.9-3.2); Lymphocytes Percent Auto 6.5 % (18.3-44.2); Mean Corpuscular HGB Conc 34.3 g/dl (32-36); Mean Corpuscular Hemoglobin 29.5 pg (26-34); Mean Corpuscular Volume 85.9 fl (80-100); Mean Platelet Volume 9.7 fl (7.4-10.4); Monocytes Absolute Auto 0.2 K/mm3 (0.1-0.6); Monocytes Percent Auto 1.4 % (2.6-8.5); Neutrophils Absolute Auto 14.6 K/mm3 (1.3-6.7); Neutrophils Percent Auto 89.8 % (45.5-73.1); Platelet Count Result 241 k/mm3 (150-375); Red Blood Count 5.16 M/mm3 (4.6-6.20); Red Cell Distribution Width 12.1 % (11.5-14.5); White Blood Count 16.3 K/mm3 (4.5-10.0)
[2023-11-25 01:34] LABS: Modified Allen's Test Pass; Site Drawn RIGHT RADIAL
[2023-11-25] MEDS: IPRATROPIUM 0.5 MG/ALBUTEROL SULFATE 2.5 MG AMPUL.NEB 3 ML INHALATION ×5 (01:36→13:43)
[2023-11-25 01:44] LABS: Alanine Aminotransferase 12 U/L (6-50); Alkaline Phosphatase 121 U/L (38-126); Anion Gap 8 mmol/L (4-12); Aspartate Amino Transferase 25 U/L (17-59); Bilirubin,Total 0.5 mg/dL (0.2-1.3); Blood Urea Nitrogen 14 mg/dL (9-20); Calcium 9.2 mg/dL (8.4-10.2); Carbon Dioxide 27 mmol/L (22-30); Chloride 100 mmol/L (98-107); Estimated Glomerular Filt Rate > 60; Glucose 142 mg/dL (65-110); Potassium 3.8 mmol/L (3.4-5.0); Sodium 135 mmol/L (137-145)
--- NOTE | 2023-11-25 02:33 | PM.IMHP ---
H&P: HPI History of Present Illness Date/Time: 11/25/23 02:33 Chief Complaint: sob Narrative: This is a 33-year-old male with past medical history significant for asthma, patient presents to the emergency room due to shortness of breath, nasal congestion, dry cough, shortness of breath, wheezing, I would redness, watery eyes, eye itchiness, for several days had prior presentation to emergency room as well for same reason. Portable chest x-ray Comparison: 11/21/2023 Clinical History: Dyspnea Findings:? Lungs are clear, without focal consolidation or pleural effusion.? Cardiomediastinal silhouette is stable. Bones and soft tissues are unremarkable. ? Impression: ? Normal chest. Review of Systems Review of Systems: nasal congestion, eye redness, eye itchiness, shortness of breath, dry cough, wheezing Constitutional: Constitutional: Denies chills, Denies fever(s), Denies malaise and Denies night sweats Eyes: Eyes: Reports eye discharge and Reports itchy eyes ENT: Reports nasal congestion Cardiovascular: Cardiovascular: Denies chest pain, Denies radiating jaw, neck or arm pain and Denies palpitations Respiratory: Respiratory: Reports cough, Reports dyspnea and Reports wheezing Gastrointestinal: Gastrointestinal: Denies abdominal pain, Denies diarrhea, Denies nausea and Denies vomiting Genitourinary: Genitourinary: Denies dysuria Musculoskeletal: Musculoskeletal: Denies myalgias Integumentary/Breasts: Skin/Breast: Denies rash Neurologic: Denies focal weakness and Denies Sensory deficit (Neuro) Psychiatric: Psychiatric: Reports no additional psychiatric complaints and Reports as per HPI Endocrine: Endocrine: Denies cold intolerance, Denies fatigue, Denies flushing, Denies heat intolerance, Denies polyphagia, Denies polydipsia, Denies polyuria and Denies palpitations Hematologic/Lymphatic: Hematologic/Lymphatic: Reports no additional hematologic/lymphatic complaints and Reports as per HPI Allergic/Immunologic: Allergic/Immunologic: Reports no additional allergic/immunologic complaints and Reports as per HPI PMFSH Past Medical History Medical History Asthma Social History Social History Smoking packs per day: 0.2 Smoking cigarettes per day: 4.0 Years smoked: 8 Smoking pack-years: 1.60 Smoking status: Former smoker Tobacco type: cigarettes Smoking end date: 10/24/22 Alcohol intake: never Substance use: never Do You Feel Safe in your Home?: Yes Lack of Transportation: No Lack of Food: Never True Current Housing: I Have Housing Concerned About Future Housing: No Difficulty Paying Gas/Electric Bills: No Difficulty Paying for Meds: No Currently Unemployed: No Education: High School Diploma/GED Difficulty w/ Childcare or Family Care: No Spiritual care concerns: No Meds Home Medications and Allergies Home Medications Medication Instructions Recorded Confirmed Type albuterol sulfate 90 mcg/actuation 2 puff inhalation QID PRN 11/25/23 Rx aerosol inhaler shortness of breath or wheezing #8.5 grams fluticasone furoate 100 1 inh inhalation DAILY asthma #60 11/25/23 Rx mcg-vilanterol 25 mcg/dose ea inhalation powder (Breo Ellipta) fluticasone propionate 50 1 spray intranasal BID #16 grams 11/25/23 Rx mcg/actuation nasal spray,suspension (Flonase Allergy Relief) loratadine 10 mg tablet 10 mg PO QAM #90 tabs 11/25/23 Rx polymyxin B sulfate 10,000 1 drp EACH EYE Q3H conjunctivitis 11/25/23 Rx unit-trimethoprim 1 mg/mL eye drops #10 mL Allergies Allergy/AdvReac Type Severity Reaction Status Date / Time No Known Allergies Allergy Verified 11/21/23 07:14 Vital Signs Vital Signs - 24 hr 11/24/23 22:43 11/24/23 22:55 11/24/23 22:49 Pulse Rate 90 Respiratory Rate 19 24 H Blood Pressure 135/77 Pu
--- NOTE | 2023-11-25 04:32 | ADMGEN ---
This patient, Rylie Nathan, was admitted to [facility] Surg Room 326-01. Patient/family oriented to hospital policies and general routines including ID bracelet, bed and alarms, visiting hours, pain management, procedures, bathroom and other care routines, personal items, smoking policy, room service/diet, and visiting hours. Information on how to activate the Rapid Response Team has been discussed. Patient/Family are encouraged to report perceived risks to care and to ask questions if they do not understand what they are told or what they should do.
[2023-11-25] MEDS: POLYMYXIN/TRIMETHOPRIM OPHTH 10 ML DROPS 1 DROP EACH EYE ×2 (05:35→08:31)
[2023-11-25] MEDS: LORATADINE 10 MG TABLET PO (08:29)
--- NOTE | 2023-11-25 13:16 | PM.DS ---
DS: Admitting Diagnosis Discharge Date 11/25/23 Admitting Diagnosis Shortness of breath DS: Discharge Diagnosis Discharge Diagnosis (1) Asthma with exacerbation: Qualifiers: Asthma persistence: unspecified Asthma severity: unspecified severity Qualified Code(s): J45.901 - Unspecified asthma with (acute) exacerbation Code(s): J45.901 - Unspecified asthma with (acute) exacerbation Status: Acute Assessment and Plan: place in observation systemic steroids schedule breathing treatments supportive care (2) Conjunctivitis: Qualifiers: Acute conjunctivitis type: bacterial Conjunctivitis type: acute Laterality: bilateral Qualified Code(s): H10.33 - Unspecified acute conjunctivitis, bilateral Code(s): H10.9 - Unspecified conjunctivitis Status: Acute Assessment and Plan: artificial eye tears DS: Summary Hospital Course Reason for hospitalization: Asthma exacerbation 2/2 allergies Hospital Course: This is a 33 year old with a past medical history of allergies and asthma. He has had no formal testing for asthma. Currently has no primary care provider. Will send him out with a referral from PCP. He will need pulmonary function testing completed an outpatient. Plan to start him on a maintenance inhaler with rescue inhaler as needed. I stressed to him that the maintenance inhaler is use daily to prevent asthma attacks and should never be used for shortness of breath. He also has complaints of sinusitis and is asking for a decongestant. His eyes are itchy and red with tearing. On Exam his lung sounds are clear without expiratory wheezing he denies shortness of breath. Status at Discharge Cognitive/behavioral status at discharge: A&O x4 Time Spent with Patient Time attestation: Total time spent providing and/or coordinating discharge services: 47 Exam Narrative: General: well appearing, appears stated age. HEENT: normocephalic, atraumatic. Mucous membranes moist. EOMI, PERRLA, dark circles under his eyes, bilateral sclera anicteric, + conjunctival injection with tearing. boggy turbinates, Neck supple without JVD, lymphadenopathy, or bruit. Respiratory: clear to auscultation bilaterally. No rales/rhonic/wheezes. Cardiovascular: Regular rate and rhythm, normal S1-S2 upon auscultation. No murmurs, rubs, or clicks. PMI is nondisplaced, capillary refill less than 3 second. Abdomen: Soft, round, no pulsatile masses, nondistended and nontender. No rebound, no guarding. No CVA tenderness, no hepatosplenomegaly. Bowel sounds present to all four quadrants. No high pitch or tinkling sounds, resonant to percussion. Extremities: No cyanosis, clubbing, or edema present. Pulses are palpable 2/2. Active ROM to all four extremities. Neuro: Alert and orientated x 4. PERRLA. Cranial nerves 2-12 intact without focal deficit. Skin: Warm, dry, and intact, without rash, erythema, or lesion. Lines: Incisions: Psych: pleasant, cooperative, normal speech, normal affect, no hallucinations, no dysarthria DS: Data Data Completed and Pending Labs on day of discharge: Labs from last 24 hours 11/25/23 11/25/23 11/25/23 01:27 01:15 00:08 WBC 16.3 H RBC 5.16 Hgb 15.2 Hct 44.3 MCV 85.9 MCH 29.5 MCHC 34.3 RDW 12.1 Plt Count 241 MPV 9.7 Immature Gran % (Auto) 0.4 Neut % (Auto) 89.8 H Lymph % (Auto) 6.5 L [place] % (Auto) 1.4 L Eos % (Auto) 1.6 Baso % (Auto) 0.3 Lymph # (Auto) 1.06 [place] # (Auto) 0.2 Eos # (Auto) 0.3 Baso # (Auto) 0.1 Abs Immat Gran (auto) 0.06 H Absolute Neuts (auto) 14.6 H Absolute Nucleated RBC 0.000 Nucleated RBC % 0.0 Puncture Site Right radial ABG pH 7.406 ABG pCO2 37.9 ABG pO2 60.6 L ABG PO2/FiO2 Ratio 2.89 ABG HCO3 23.3 ABG O2 Saturation 91.5 L ABG O2 Content 19.5 ABG Base Excess -1.1 A-a Gradient 43.7 Oxyhemoglobin 90.0 Total Hemoglobi
== END 2023-11-25 15:03 | disposition home or self-care (01) | DRG 141 ==
LOC: ANHED 11-25 02:18 → ANH3MEDSUR 11-25 03:27
PROVIDERS: Admitting Provider Internal Medicine; Emergency Provider Physician Assistant; Visit Provider Nurse Practitioner Acute Care
DX: J45.901 Unspecified asthma with (acute) exacerbation (principal); H10.33 Unspecified acute conjunctivitis, bilateral; D72.828 Other elevated white blood cell count; T38.0X5A Adverse effect of glucocorticoids and synthetic analogues, initial encounter; J32.9 Chronic sinusitis, unspecified; Z87.891 Personal history of nicotine dependence; Z20.822 Contact with and (suspected) exposure to COVID-19
CPT/HCPCS: 36415; 36600; 71045; 80053; 82805; 85025; 87637; 93005; 94640; 96365; 96375; 99285; A9270; G0378; J1100; J3475

== ENCOUNTER 2023-11-27 22:41 | Observation (INO) | payer SELFPAY ==
[2023-11-27] VITALS (8 sets, daily range): BP systolic 122–127; BP diastolic 81–94; PULSE 70–90; RESP 14–20; TEMP 36.5; O2SAT 92–100
--- NOTE | ~2023-11-27 | XR_ITS ---
EXAMINATION: XR chest 1V portable DATE: 11/27/2023 23:24 INDICATION: Dyspnea. Wheezing. TECHNIQUE: A single frontal view of the chest was obtained. COMPARISON: Chest single view 11/25/2023 FINDINGS: There is no pneumonia, pleural effusion, or pneumothorax. The heart size is normal. IMPRESSION: 1. No acute cardiopulmonary disease. Reviewed, dictated and finalized at location A.
--- NOTE | 2023-11-27 23:13 | ECG_ITS ---
SEE SCANNED COPY FOR CONFIRMED REPORT MTDD
--- NOTE | 2023-11-27 23:13 | ED.ASTHMA ---
HPI - Asthma General Chief Complaint: Asthma Stated Complaint: SOB Time Seen by Provider: 11/27/23 23:04 Source: patient Mode of arrival: ambulatory Limitations: no limitations History of Present Illness HPI Narrative: This is a 33-year-old who presents to the ED for chief complaint of asthma exacerbation. Patient reports that he was just here last week and admitted for asthma exacerbation. Reports they sent him home with albuterol inhaler prescription. States that he was feeling wheezy this morning and he tried 2 puffs of his albuterol with mild improvement. He states this evening he started feeling very wheezy again. He took a total of 4+ evening with this dose of albuterol just prior to arrival. He did not picker feeder any inhaled corticosteroids or oral steroids. Endorses occasional cough but nothing productive. Denies fevers, chills, nausea, vomiting. Related Data Allergies Allergy/AdvReac Type Severity Reaction Status Date / Time No Known Allergies Allergy Verified 11/21/23 07:14 Review of Systems Review of Systems: All systems as dictated in [facility] Past Medical History Medical History Asthma Social History Social History Smoking packs per day: 0.2 Smoking cigarettes per day: 4.0 Years smoked: 8 Smoking pack-years: 1.60 Smoking status: Former smoker Tobacco type: cigarettes Smoking end date: 10/24/22 Alcohol intake: never Substance use: never Do You Feel Safe in your Home?: Yes Lack of Transportation: No Lack of Food: Never True Current Housing: I Have Housing Concerned About Future Housing: No Difficulty Paying Gas/Electric Bills: No Difficulty Paying for Meds: No Currently Unemployed: No Education: High School Diploma/GED Difficulty w/ Childcare or Family Care: No Spiritual care concerns: No Exam Narrative: GENERAL: Well-appearing, well-nourished, and in no acute distress. HEAD: Normocephalic, atraumatic. EYES: PERRLA and EOMI. ENT: Nares clear, no rhinorrhea or epistaxis. Mucous membranes moist. Oropharynx without tonsillar hypertrophy exudate or other lesions. NECK: Supple. No adenopathy or masses. CHEST: No respiratory distress. No accessory muscle use. Able to speak in full sentences. Diffuse wheezes bilaterally. 96% room air. HEART: Regular rate and rhythm. No murmur heard. Normal peripheral pulses. ABDOMEN: Soft, nontender, nondistended, normal active bowel sounds. MSK: Normal range of motion. No edema. SKIN: Warm, dry, no rash. NEURO: Alert and oriented x3. No focal deficits. PSYCH: Normal mood and affect. Course Reevaluation(s) Reevaluation #1: Patient is feeling improved overall. He is preferring to go home. Date: 11/28/23 Time: 01:39 Vital Signs Vital signs: Vital Signs Temperature 97.7 F 11/27/23 22:44 Pulse Rate 90 11/27/23 22:44 Respiratory Rate 20 11/27/23 22:44 Blood Pressure 126/94 H 11/27/23 22:44 Pulse Oximetry 96 11/27/23 22:44 Oxygen Delivery Room Air 11/27/23 22:44 Temperature 97.7 F 11/27/23 22:44 Pulse Rate 84 11/28/23 01:10 Respiratory Rate 20 11/28/23 01:10 Blood Pressure 126/67 11/28/23 00:31 Pulse Oximetry 96 11/28/23 01:02 Oxygen Delivery Room Air 11/28/23 01:02 MDM - Asthma MDM Narrative Medical decision making narrative: This is a 33-year-old male who presents to the ED with chief complaint of asthma exacerbation. Vitals are normal. on exam not exhibiting overt respiratory distress. Able to speak in full sentences. However he does have diffuse wheezing. He was just discharged from the hospital few days ago for asthma exacerbation. Patient is frequently in our ED and hospital for asthma exacerbations. ECG shows sinus rhythm with early repolarization. Chest x-ray shows no acute findings. Lab work shows elevated white count, consis
[2023-11-27] MEDS: IPRATROPIUM BR 0.02% INH SOLN 0.5 MG/2.5 ML VIAL 1 MG INHALATION (23:27)
[2023-11-27] MEDS: ALBUTEROL SULFATE NEB 2.5 MG/3 ML INH 10 MG INHALATION (23:27)
[2023-11-27] MEDS: MAGNESIUM SULF 1 GM/D5W 100 ML 1 GM/100 ML BAG IVPB (23:30)
[2023-11-27 23:33] LABS: Basophils Absolute Auto 0.1 K/mm3 (0.0-0.1); Basophils Percent Auto 0.5 % (0.2-1.2); Eosinophils Absolute Auto 1.3 K/mm3 (0-0.3); Eosinophils Percent Auto 8.3 % (0-4.4); Hematocrit 43.7 % (42.0-52.0); Hemoglobin 14.9 g/dL (14.0-18.0); Immature Granulocyte Absolute 0.06 K/mm3 (0.00-0.031); Immature Granulocyte Percent A 0.4 % (0-0.5); Lymphocytes Absolute Auto 1.91 K/mm3 (0.9-3.2); Lymphocytes Percent Auto 12.7 % (18.3-44.2); Mean Corpuscular HGB Conc 34.1 g/dl (32-36); Mean Corpuscular Hemoglobin 29.7 pg (26-34); Mean Corpuscular Volume 87.1 fl (80-100); Mean Platelet Volume 9.7 fl (7.4-10.4); Monocytes Absolute Auto 0.8 K/mm3 (0.1-0.6); Monocytes Percent Auto 5.3 % (2.6-8.5); Neutrophils Absolute Auto 10.9 K/mm3 (1.3-6.7); Neutrophils Percent Auto 72.8 % (45.5-73.1); Platelet Count Result 231 k/mm3 (150-375); Red Blood Count 5.02 M/mm3 (4.6-6.20); Red Cell Distribution Width 12.2 % (11.5-14.5)
[2023-11-27 23:43] LABS: Alanine Aminotransferase 11 U/L (6-50); Albumin Level 4.7 g/dL (3.5-5.1); Alkaline Phosphatase 128 U/L (38-126); Anion Gap 8 mmol/L (4-12); Aspartate Amino Transferase 24 U/L (17-59); Bilirubin,Total 0.5 mg/dL (0.2-1.3); Blood Urea Nitrogen 15 mg/dL (9-20); Calcium 9.3 mg/dL (8.4-10.2); Carbon Dioxide 27 mmol/L (22-30); Chloride 103 mmol/L (98-107); Estimated Glomerular Filt Rate > 60; Glucose 106 mg/dL (65-110); Magnesium 2.1 mg/dL (1.6-2.3); Potassium 3.7 mmol/L (3.4-5.0); Sodium 138 mmol/L (137-145)
[2023-11-28] VITALS (28 sets, daily range): BP systolic 93–147; BP diastolic 63–80; PULSE 65–94; RESP 12–25; TEMP 36.3–36.8; O2SAT 92–100; BMI 20.7
[2023-11-28] MEDS: dexAMETHasone SOD PHOS INJ 10 MG/ML 1 ML VIAL 6 MG IV PUSH (00:51)
[2023-11-28] MEDS: FLUTICASONE/SALMETEROL 45-21 MCG (*SP) INHALER 2 PUFF INHALATION (01:10)
--- NOTE | 2023-11-28 02:04 | PC.NURSE ---
Patient ambulated with hyperbaric technician for walking pulse ox, patient ranged from 92%-85% on RA. Patient stated he did feel better after his medications and treatments. ERP notified.
--- NOTE | 2023-11-28 03:30 | ADMGEN ---
This patient, Rylie Nathan, was admitted to Medical Room 348-01. Patient/family oriented to hospital policies and general routines including ID bracelet, bed and alarms, visiting hours, pain management, procedures, bathroom and other care routines, personal items, smoking policy, room service/diet, and visiting hours. Information on how to activate the Rapid Response Team has been discussed. Patient/Family are encouraged to report perceived risks to care and to ask questions if they do not understand what they are told or what they should do.
[2023-11-28] MEDS: methylPREDNISolone SOD SUCC 125 MG VIAL 60 MG IV PUSH ×3 (05:43→21:41)
[2023-11-28] MEDS: ALBUTEROL SULFATE NEB 2.5 MG/3 ML INH INHALATION ×3 (09:32→19:22)
[2023-11-28] MEDS: IPRATROPIUM BR 0.02% INH SOLN 0.5 MG/2.5 ML VIAL INHALATION ×3 (09:33→19:22)
--- NOTE | 2023-11-28 10:00 | PM.IMHP ---
H&P: HPI History of Present Illness Date/Time: 11/28/23 10:00 Chief Complaint: SOB Narrative: Patient is a 33-year-old male who presented to the emergency department with complaints worsening shortness of breath. Patient was recently discharged due to new onset asthma exacerbation returns to emergency department after symptoms were unrelieved with his new prescribed inhalers. Upon review discharge medications patient was prescribed steroids at discharge. Patient reported he woke up feeling short of breath with wheezing and took 2 puffs of his new inhaler with mild improvements however continued to worsen and took 4 more puffs without relief. Patient did receive an hour long nebulizer treatment in the ER and a dose dexamethasone with reported relief however per medical chart patient is post treatment peak flow showed a FEV around 33%. Patient also underwent a oxygen just walk in the emergency department which showed his SpO2 dropped down to 85%. Patient was admitted to the medical unit for observation will continue to treat with duo nebulizers and steroids monitor overnight improvement on respiratory status. Patient is aware she needs follow-up with electronic masking system operator outpatient for further evaluation and testing new onset asthma. Patient did have leukocytosis of 15 but this would be expected secondary to his recent steroid use. Review of Systems Review of Systems: All systems reviewed & are unremarkable except as noted in HPI and below PMFSH Past Medical History Medical History Asthma Family History Family History Other Family history non-contributory Social History Social History Smoking packs per day: 0.25 Smoking cigarettes per day: 5.0 Years smoked: 8 Smoking pack-years: 2.00 Smoking status: Former smoker Tobacco type: cigarettes Smoking end date: 07/26/22 Alcohol intake: never Substance use: never Do You Feel Safe in your Home?: Yes Lack of Transportation: No Lack of Food: Never True Current Housing: I Have Housing Concerned About Future Housing: No Difficulty Paying Gas/Electric Bills: No Difficulty Paying for Meds: No Currently Unemployed: No Education: High School Diploma/GED Difficulty w/ Childcare or Family Care: No Spiritual care concerns: No Meds Home Medications and Allergies Home Medications Medication Instructions Recorded Confirmed Type albuterol sulfate 90 mcg/actuation 2 puff inhalation QID PRN 11/25/23 11/28/23 Rx aerosol inhaler shortness of breath or wheezing #8.5 grams fluticasone furoate 100 1 inh inhalation DAILY asthma #60 11/25/23 11/28/23 Rx mcg-vilanterol 25 mcg/dose ea inhalation powder (Breo Ellipta) fluticasone propionate 50 1 spray intranasal BID #16 grams 11/25/23 11/28/23 Rx mcg/actuation nasal spray,suspension (Flonase Allergy Relief) loratadine 10 mg tablet 10 mg PO QAM #90 tabs 11/25/23 11/28/23 Rx polymyxin B sulfate 10,000 1 drp EACH EYE Q3H conjunctivitis 11/25/23 11/28/23 Rx unit-trimethoprim 1 mg/mL eye drops #10 mL budesonide-formoterol HFA 160 2 puff inhalation Q12H #10.2 grams 11/28/23 Rx mcg-4.5 mcg/actuation aerosol inhaler (Symbicort) Allergies Allergy/AdvReac Type Severity Reaction Status Date / Time No Known Allergies Allergy Verified 11/28/23 03:38 Vital Signs Vital Signs - 24 hr 11/27/23 22:44 11/27/23 23:28 11/27/23 23:42 Temperature 97.7 F Pulse Rate 90 77 Respiratory Rate 20 15 Blood Pressure 126/94 H Pulse Oximetry 96 96 Oxygen Delivery Room Air Room Air 11/27/23 23:06 11/27/23 23:15 11/27/23 23:30 Temperature Pulse Rate 78 85 77 Respiratory Rate 14 17 19 Blood Pressure 127/85 Pulse Oximetry 98 94 96 Oxygen Delivery 11/27/23 23:31 11/27/23 2
[2023-11-28] MEDS: ENOXAPARIN 40 MG/0.4 ML SYRINGE SUB-Q (13:16)
[2023-11-28] MEDS: POLYMYXIN/TRIMETHOPRIM OPHTH 10 ML DROPS 1 DROP EACH EYE ×5 (13:17→21:41)
[2023-11-28] MEDS: LORATADINE 10 MG TABLET PO (20:11)
[2023-11-29 01:17] VITALS: PULSE 72; RESP 18
[2023-11-29] MEDS: IPRATROPIUM BR 0.02% INH SOLN 0.5 MG/2.5 ML VIAL INHALATION ×2 (01:17→08:07)
[2023-11-29] MEDS: ALBUTEROL SULFATE NEB 2.5 MG/3 ML INH INHALATION ×2 (01:17→08:07)
[2023-11-29 01:27] VITALS: PULSE 72; RESP 18
[2023-11-29 04:10] VITALS: BP 124/55; PULSE 85; RESP 18; TEMP 36.6; O2SAT 95
[2023-11-29] MEDS: POLYMYXIN/TRIMETHOPRIM OPHTH 10 ML DROPS 1 DROP EACH EYE ×2 (05:21→09:24)
[2023-11-29] MEDS: methylPREDNISolone SOD SUCC 125 MG VIAL 60 MG IV PUSH (05:21)
[2023-11-29 08:10] VITALS: PULSE 82; RESP 18
[2023-11-29 08:22] VITALS: PULSE 90; RESP 18
--- NOTE | 2023-11-29 08:50 | PM.DS ---
DS: Admitting Diagnosis Discharge Date 11/29/2023 Admitting Diagnosis Asthma exacerbation DS: Discharge Diagnosis Discharge Diagnosis (1) Conjunctivitis: Qualifiers: Acute conjunctivitis type: bacterial Conjunctivitis type: acute Laterality: bilateral Qualified Code(s): H10.33 - Unspecified acute conjunctivitis, bilateral Code(s): H10.9 - Unspecified conjunctivitis Status: Acute (2) Asthma with exacerbation: Code(s): J45.901 - Unspecified asthma with (acute) exacerbation Status: Acute (3) Asthma: Code(s): J45.909 - Unspecified asthma, uncomplicated Status: Acute (4) Acute respiratory failure with hypoxia: Code(s): J96.01 - Acute respiratory failure with hypoxia Status: Acute Plan The acute respiratory failure secondary to asthma exacerbation Duo nebulizers Q 6 Steroids antihistamine Oxygen as needed Hypoxia with exertion SPO2 noted as low as 85% FEV 33% Chest x-ray with no acute cardiopulmonary issues Will need follow-up outpatient with cloth painter Pulmonary function test has been ordered for next week Conjunctivitis Reasumed antibiotic eyedrops Code status: Full code per patient DVT prophylaxis: Lovenox Stress ulcer prophylaxis: Protonix 40 daily PT/OT notes: Ambulatory Disposition: Patient will be admitted overnight for observation after recurrence asthma exacerbation continue to treat with O2 nebulizers and steroids. Patient is scheduled to have pulmonary function test next week the patient patient is ambulatory discharged home medically stable. DS: Summary Hospital Course Reason for hospitalization: Asthma exacerbation Hospital Course: Chief Complaint: SOB Narrative: Patient is a 33-year-old male who presented to the emergency department with complaints worsening shortness of breath.? Patient was recently discharged due to new onset asthma exacerbation returns to emergency department after symptoms were unrelieved with his new prescribed inhalers.? Upon review discharge medications patient was prescribed steroids at discharge.? Patient reported he woke up feeling short of breath with wheezing and took 2 puffs of his new inhaler with mild improvements however continued to worsen and took 4 more puffs without relief.? Patient did receive an hour long nebulizer treatment in the ER and a dose dexamethasone with reported relief however per medical chart patient is post treatment peak flow showed a FEV around 33%.? Patient also underwent a oxygen just walk in the emergency department which showed his SpO2 dropped down to 85%.? Patient was admitted to the medical unit for observation will continue to treat with duo nebulizers and steroids monitor overnight improvement on respiratory status.? Patient is aware she needs follow-up with cloth painter outpatient for further evaluation and testing new onset asthma.? Patient did have leukocytosis of 15 but this would be expected secondary to his recent steroid use. 5/6: Discharged Patient feeling better today and peak flow up to 300 with little effort. Patient on RA with mild wheezing but overall improved. Patient was discharged with a burst pack of prednisone and has been scheduled for PFT testing from previous admission as well as prescribed inhalers. Patient educated on aggravating factors and ways to avoid triggers. Status at Discharge Functional status at discharge: independent ambulation Time Spent with Patient Time attestation: Total time spent providing and/or coordinating discharge services: Time spent: Less than 30 minutes Exam Narrative: Physical Exam: GENERAL: Alert and oriented x 3. No acute distress. EYES: EOMI. No scleral icterus. PERRLA. HEENT: Moist mucous membranes. LUNGS: Wheezing throughout. No accessory muscle use. CARDIOVASCULAR: Regular rate and rhythm. No murmur. No JVD. S1-S2 ABDOMEN: Soft, mild tenderness and non-disten
[2023-11-29] MEDS: PANTOPRAZOLE 40 MG TABLET PO (09:24)
== END 2023-11-29 12:30 | disposition home or self-care (01) ==
LOC: ANHED 11-28 02:39 → ANH3MED 11-28 03:19
PROVIDERS: Admitting Provider Internal Medicine; Emergency Provider Physician Assistant; Visit Provider Internal Medicine
DX: J45.901 Unspecified asthma with (acute) exacerbation (principal); J96.01 Acute respiratory failure with hypoxia; H10.33 Unspecified acute conjunctivitis, bilateral; Z87.891 Personal history of nicotine dependence; Z79.51 Long term (current) use of inhaled steroids
CPT/HCPCS: 36415; 71045; 80053; 83735; 85025; 93005; 94640; 94664; 96365; 96372; 96374; 96375; 96376; 99285; A9270; G0378; J1100; J1650; J2919; J3475

== ENCOUNTER 2024-11-24 02:41 | Emergency (ER) | payer SELFPAY ==
[2024-11-24] VITALS (7 sets, daily range): BP systolic 110–133; BP diastolic 71–83; PULSE 65–81; RESP 14–18; TEMP 36.6; O2SAT 97–100
--- NOTE | ~2024-11-24 | XR_ITS ---
Portable chest x-ray Comparison: 11/27/2023 Clinical History: Shortness of breath Findings: Lungs are clear, without focal consolidation or pleural effusion. Cardiomediastinal silho uette is stable. Bones and soft tissues are unremarkable. Impression: Normal chest. Reviewed, dictated and finalized at location . Impression: Normal chest.
--- NOTE | 2024-11-24 02:53 | ECG_ITS ---
Test Date: 2024-11-24 02:59:03 Measurements Intervals [place] Rate: 72 P: 76 MI: 150 QRS: 71 QRSD: 97 T: 38 QT: 367 QTc: 402 Interpretive Statements SINUS RHYTHM No previous ECG available for comparison Electronically Signed On 11-24-2024 19:08:34 CDT by Brenda Hendrickson
[2024-11-24] MEDS: methylPREDNISolone SOD SUCC 125 MG VIAL IV PUSH (03:08)
[2024-11-24 03:10] LABS: Basophils Absolute Auto 0.1 K/mm3 (0.0-0.1); Basophils Percent Auto 0.5 % (0.2-1.2); Eosinophils Absolute Auto 0.7 K/mm3 (0-0.3); Hematocrit 44.8 % (42.0-52.0); Hemoglobin 14.9 g/dL (14.0-18.0); Immature Granulocyte Absolute 0.08 K/mm3 (0.00-0.031); Immature Granulocyte Percent A 0.4 % (0-0.5); Lymphocytes Absolute Auto 1.26 K/mm3 (0.9-3.2); Mean Corpuscular HGB Conc 33.3 g/dl (32-36); Mean Corpuscular Hemoglobin 28.9 pg (26-34); Mean Corpuscular Volume 86.8 fl (80-100); Mean Platelet Volume 9.6 fl (7.4-10.4); Monocytes Absolute Auto 0.5 K/mm3 (0.1-0.6); Monocytes Percent Auto 2.9 % (2.6-8.5); Neutrophils Absolute Auto 15.4 K/mm3 (1.3-6.7); Neutrophils Percent Auto 85.2 % (45.5-73.1); Platelet Count Result 248 k/mm3 (150-375); Red Blood Count 5.16 M/mm3 (4.6-6.20); Red Cell Distribution Width 11.9 % (11.5-14.5); White Blood Count 18.1 K/mm3 (4.5-10.0)
[2024-11-24] MEDS: IPRATROPIUM 0.5 MG/ALBUTEROL SULFATE 2.5 MG AMPUL.NEB 3 ML INHALATION ×2 (03:15→03:22)
[2024-11-24 03:21] LABS: Alanine Aminotransferase 19 U/L (6-50); Albumin Level 4.8 g/dL (3.5-5.1); Alkaline Phosphatase 112 U/L (38-126); Anion Gap 13 mmol/L (4-12); Aspartate Amino Transferase 28 U/L (17-59); Bilirubin,Total 0.5 mg/dL (0.2-1.3); Blood Urea Nitrogen 18 mg/dL (9-20); Calcium 9.3 mg/dL (8.4-10.2); Carbon Dioxide 24 mmol/L (22-30); Chloride 99 mmol/L (98-107); Estimated CRCL calculation 99 ml/min; Estimated Glomerular Filt Rate > 60; Glucose 177 mg/dL (65-110); Magnesium 2.1 mg/dL (1.6-2.3); Potassium 3.7 mmol/L (3.4-5.0); Sodium 136 mmol/L (137-145)
--- NOTE | 2024-11-24 04:17 | ED_ITS ---
HPI - General Adult General Chief complaint: Allergic Reaction Stated complaint: allergies, sob Time Seen by Provider: 11/24/24 02:44 History of Present Illness HPI narrative: Patient is a 34-year-old male who presents to the emergency department this morning complaining of shortness of breath and asthma exacerbation. Patient states that he does have a past medical history of asthma but this only flares up once a year around this time in the spring. Patient states that starting approximately 3 hours ago he started to develop red itchy eyes, nasal congestion and shortness of breath. Patient states that every time this happens he comes to the emergency department and received steroids and a breathing treatment with improvement of his symptoms. He denies any additional symptoms or concerns at this time. Related Data Allergies Allergy/AdvReac Type Severity Reaction Status Date / Time No Known Allergies Allergy Verified 11/24/24 02:42 Review of Systems 2 Review of Systems: All systems are reviewed and are negative unless stated otherwise in the HPI. [facility] Past Medical History Medical History Asthma Family History Family History Other Family history non-contributory Social History Social History Smoking packs per day: 0.25 Smoking cigarettes per day: 5.0 Years smoked: 8 Smoking pack-years: 2.00 Smoking status: Former smoker Tobacco type: cigarettes Smoking end date: 07/26/22 Alcohol intake: never Substance use: never Do You Feel Safe in your Home?: Yes Lack of Transportation: No Lack of Food: Never True Current Housing: I Have Housing Concerned About Future Housing: No Difficulty Paying Gas/Electric Bills: No Difficulty Paying for Meds: No Currently Unemployed: No Education: High School Diploma/GED Difficulty w/ Childcare or Family Care: No Spiritual care concerns: No Exam 2 Narrative: General: Alert, awake, afebrile, in no acute distress. HEENT: PERRL, no rhinorrhea, no post nasal drip, oropharynx clear, bilateral conjunctival injection. Neck: Trachea midline, no JVD, no lymphadenopathy. Cardiovascular: Regular rate and rhythm, no murmurs, rubs or gallops, no peripheral edema. Respiratory: Bilateral expiratory wheezing, no tachypnea, no respiratory distress. Abdomen: Soft, nontender, nondistended, no rebound, no guarding, no peritoneal signs. Musculoskeletal: No joint swelling or deformity, normal muscle tone. Skin: No rashes or petechia, no signs of infection. Psychiatric: Alert and oriented, normal behavior and judgment for situation. Neurological: Alert and oriented to person, place, and time. Follows all commands. No focal deficits, speech is clear and fluent. Course Vital Signs Vital signs: Vital Signs Temperature 98 F 11/24/24 02:47 Pulse Rate 81 11/24/24 02:47 Respiratory Rate 14 11/24/24 02:47 Blood Pressure 133/83 11/24/24 02:47 Pulse Oximetry 97 11/24/24 02:47 Oxygen Delivery Room Air 11/24/24 02:47 Temperature 98 F 11/24/24 02:47 Pulse Rate 70 11/24/24 03:37 Respiratory Rate 18 11/24/24 03:37 Blood Pressure 133/83 11/24/24 02:47 Pulse Oximetry 97 11/24/24 02:47 Oxygen Delivery Room Air 11/24/24 02:47 Medical Decision Making MDM Narrative Medical decision making narrative: The patient was evaluated by myself in the emergency department. History is obtained from patient who is an independent historian and physical exam was performed. External medical records were reviewed at this time. IV was established and pertinent tests were ordered. Patient was administered 2 DuoNeb breathing treatments and 125 mg of IV Solu- Medrol. EKG was obtained which revealed sinus rhythm rate of 72 beats per minute, evidence of acute ischemia. EKG was independently interpreted by me and is currently pending official cardiology read. Laboratory results obtained revealing a leukocytosis of 18, otherwise unremarkable. Patient's white blood cell count usually runs high ranging anywhere from 13 to 22 per chart review. Imaging studies obtained included CXR which was independently interpreted by me revealing no acute cardiopulmonary process, which is pending final radiology interpretation. Differential diagnosis considerations include asthma exacerbation, seasonal allergies, infectious process such as pneumonia, acute viral syndrome. Comorbidities impacting this visit include history of asthma. I have evaluated and discussed social determinants of health with the patient that could potentially impact subsequent diagnosis and treatment plans. On repeat assessment of the patient, reevaluation revealed that the patient is doing well and is in no acute distress. Patient symptoms have improved since he arrived to our emergency department. Repeat vital signs were all reviewed and noted to be stable. Differential diagnosis and treatment plan were discussed with the patient at bedside. Patient agrees with discussion and after shared medical decision making agrees with discharge. All questions were answered to the patient's satisfaction. Patient will follow up with his PCP in 3-5 days. A script for Medrol Dosepak was sent to patient's pharmacy to use as prescribed. Patient was provided with strict return precautions and instructed to return to the emergency department if any new or worsening symptoms develop. The patient was discharged in stable condition. Vital Signs Vital Signs: Vital Signs Temperature 98 F 11/24/24 02:47 Pulse Rate 81 11/24/24 02:47 Respiratory Rate 14 11/24/24 02:47 Blood Pressure 133/83 11/24/24 02:47 Pulse Oximetry 97 11/24/24 02:47 Oxygen Delivery Room Air 11/24/24 02:47 Temperature 98 F 11/24/24 02:47 Pulse Rate 70 11/24/24 03:37 Respiratory Rate 18 11/24/24 03:37 Blood Pressure 133/83 11/24/24 02:47 Pulse Oximetry 97 11/24/24 02:47 Oxygen Delivery Room Air 11/24/24 02:47 Lab Data 11/24/24 03:04 11/24/24 03:04 Labs: Lab Results 11/24/24 Range/Units 03:04 WBC 18.1 H (4.5-10.0) K/mm3 RBC 5.16 (4.6-6.20) M/mm3 Hgb 14.9 (14.0-18.0) g/dL Hct 44.8 (42.0-52.0) % MCV 86.8 (80-100) fl MCH 28.9 (26-34) pg MCHC 33.3 (32-36) g/dl RDW 11.9 (11.5-14.5) % Plt Count 248 (150-375) k/mm3 MPV 9.6 (7.4-10.4) fl Immature Gran % (Auto) 0.4 (0-0.5) % Neut % (Auto) 85.2 H (45.5-73.1) % Lymph % (Auto) 7.0 L (18.3-44.2) % [place] % (Auto) 2.9 (2.6-8.5) % Eos % (Auto) 4.0 (0-4.4) % Baso % (Auto) 0.5 (0.2-1.2) % Lymph # (Auto) 1.26 (0.9-3.2) K/mm3 [place] # (Auto) 0.5 (0.1-0.6) K/mm3 Eos # (Auto) 0.7 H (0-0.3) K/mm3 Baso # (Auto) 0.1 (0.0-0.1) K/mm3 Abs Immat Gran (auto) 0.08 H (0.00-0.031) K/mm3 Absolute Neuts (auto) 15.4 H (1.3-6.7) K/mm3 Absolute Nucleated RBC 0.000 (0.0-0.012) K/mm3 Nucleated RBC % 0.0 (0.0-0.2) % Sodium 136 L (137-145) mmol/L Potassium 3.7 (3.4-5.0) mmol/L Chloride 99 (98-107) mmol/L Carbon Dioxide 24 (22-30) mmol/L Anion Gap 13 H (4-12) mmol/L BUN 18 (9-20) mg/dL Creatinine 0.81 (0.7-1.3) mg/dL Estim Creat Clear Calc 99 ml/min Estimated GFR > 60 (59 - ) Glucose 177 H (65-110) mg/dL Calcium 9.3 (8.4-10.2) mg/dL Magnesium 2.1 (1.6-2.3) mg/dL Total Bilirubin 0.5 (0.2-1.3) mg/dL AST 28 (17-59) U/L ALT 19 (6-50) U/L Alkaline Phosphatase 112 (38-126) U/L Total Protein 8.0 (6.3-8.2) g/dL Albumin 4.8 (3.5-5.1) g/dL Discharge Plan Discharge Clinical Impression: Asthma with exacerbation, Seasonal allergies Patient Disposition: Home Condition: Improved Instructions: Antibiotic Form, Asthma (ED), Allergies (ED) Additional Instructions: Please follow-up with your family doctor within the next 3-5 days and return to emergency department if any new or worsening symptoms develop. Take the steroids pack as instructed to help with your symptoms. Patient Language: Bahamian Prescriptions: New methylprednisolone [Medrol (Hilario)] 4 mg tablets,dose pack See Rx Instructions .ROUTE .COMPLEX Qty: 21 0RF Rx Instructions: for 6 days No Action loratadine 10 mg Tablet 10 mg PO QAM Qty: 90 0RF albuterol sulfate 90 mcg/actuation HFA aerosol inhaler 2 puff inhalation QID PRN (Reason: shortness of breath or wheezing) Qty: 8.5 0RF fluticasone furoate-vilanterol [Breo Ellipta] 100-25 mcg/dose blister with device 1 inh inhalation DAILY Qty: 60 0RF Rx Instructions: Take one inhalation daily to prevent asthma exacerbation fluticasone propionate [Flonase Allergy Relief] 50 mcg/actuation spray,suspension 1 spray intranasal BID Qty: 16 0RF Rx Instructions: administer into each nostril budesonide-formoterol [Symbicort] 160-4.5 mcg/actuation HFA aerosol inhaler 2 puff inhalation Q12H Qty: 10.2 0RF prednisolone 5 mg (48 tabs) tablets,dose pack See Rx Instructions .ROUTE .COMPLEX Qty: 1 0RF Rx Instructions: orally per package directions Follow-up/Referrals: PHYSICIAN NOT ON STAFF,NONSTAFF [Primary Care Provider] - 3 Days Junior Rojo MD [Physician] - 3 Days Time of Disposition: 04:19
== END 2024-11-24 05:14 | disposition home or self-care (01) ==
PROVIDERS: Emergency Provider Emergency Medicine
DX: J45.901 Unspecified asthma with (acute) exacerbation (principal); Z87.891 Personal history of nicotine dependence
CPT/HCPCS: 36415; 71045; 80053; 83735; 85025; 93005; 94640; 96374; 96375; 99284; J2919

== ENCOUNTER 2024-12-08 17:10 | Emergency (ER) | payer SELFPAY ==
[2024-12-08] VITALS (7 sets, daily range): BP systolic 134–147; BP diastolic 71–85; PULSE 55–99; RESP 16–22; TEMP 36.6–36.7; O2SAT 97–98
--- NOTE | 2024-12-08 17:40 | ED.GENADULT ---
HPI - General Adult General Chief complaint: Shortness of Breath/Dyspnea <Zuleyka Kim November, BOOKKEEPER ASSISTANT - Last Filed: 12/08/24 19:13> Stated complaint: SOB for 20 minutes <Zuleyka Kim November, BOOKKEEPER ASSISTANT - Last Filed: 12/08/24 19:13> Time Seen by Provider: 12/08/24 17:40 <Zuleyka Kim November, BOOKKEEPER ASSISTANT - Last Filed: 12/08/24 19:13> Focused HPI: Rylie Nathan is a 34 y/o male who presents with reports that he usually uses his albuterol inhaler when he wheezes but he tried his inhaler about 20 mins ago but still feeling SOB. He states it usually happens around this time of year GENERAL: Well-appearing, well-nourished, and in no acute distress. HEAD: Normocephalic, atraumatic. CHEST: mild inspiratory wheeze bilateral posterior hill sdating 97% on RA HEART: Regular rate and rhythm. NEURO: Alert and oriented x3. Patient screened in triage and initial orders placed. Additional care and disposition to be based upon diagnostic testing and treatment. <Zuleyka Kim November, BOOKKEEPER ASSISTANT - Last Filed: 12/08/24 19:13> History of Present Illness HPI narrative: Agree with the HPI above. Patient states he gets seasonal allergies in addition to his asthma exacerbations but presently he is feeling comfortable after inhaler use in triage. <Gab Covarrubias MD - Last Filed: 12/09/24 01:19> Related Data Allergies/adverse reactions: Allergies Allergy/AdvReac Type Severity Reaction Status Date / Time No Known Allergies Allergy Verified 11/24/24 02:42 <Zuleyka Kim November, BOOKKEEPER ASSISTANT - Last Filed: 12/08/24 19:13> Review of Systems Review of Systems: As reviewed above in HPI <Gab Covarrubias MD - Last Filed: 12/09/24 01:19> PMFSH Past Medical History Medical History: Medical History Asthma <Zuleyka Blankenship, BOOKKEEPER ASSISTANT - Last Filed: 12/08/24 19:13> Family History Family History: Family History Other Family history non-contributory <Zuleyka HumbertoNoman November, BOOKKEEPER ASSISTANT - Last Filed: 12/08/24 19:13> Social History Social History: Social History Smoking packs per day: 0.25 Smoking cigarettes per day: 5.0 Years smoked: 8 Smoking pack-years: 2.00 Smoking status: Former smoker Tobacco type: cigarettes Smoking end date: 07/26/22 Alcohol intake: never Substance use: never Do You Feel Safe in your Home?: Yes Lack of Transportation: No Lack of Food: Never True Current Housing: I Have Housing Concerned About Future Housing: No Difficulty Paying Gas/Electric Bills: No Difficulty Paying for Meds: No Currently Unemployed: No Education: High School Diploma/GED Difficulty w/ Childcare or Family Care: No Spiritual care concerns: No <Zuleyka HumbertoNoman November, BOOKKEEPER ASSISTANT - Last Filed: 12/08/24 19:13> Exam Narrative: GENERAL: [Well-appearing, well-nourished, and in no acute distress.] HEAD: [Normocephalic, atraumatic.] EYES: [PERRLA and EOMI.] ENT: Nares clear, no rhinorrhea or epistaxis. Mucous membranes moist. NECK: Supple. CHEST: Mild wheezing but no tachypnea or labored respirations, no decreased air entry. No retractions. HEART: [Regular rate and rhythm]. No murmur heard. [Normal peripheral pulses.] ABDOMEN: [Soft, nondistended], [nontender], [No rigidity or guarding] EXTREMITIES: Normal range of motion. [No edema.] SKIN: Warm, dry, no rash. NEURO: [No focal deficits]. Alert and oriented [x3.] PSYCH: [Normal mood and affect.] <Gab Covarrubias MD - Last Filed: 12/09/24 01:19> Course Vital Signs Vital signs: Vital Signs Temperature 36.6 C 12/08/24 17:15 Pulse Rate 66 12/08/24 17:15 Respiratory Rate 16 12/08/24 17:15 Blood Pressure 134/85 12/08/24 17:15 Pulse Oximetry 97 12/08/24 17:15 Oxygen Delivery Room Air 12/08/24 17:15 Temperature 36.7 C 12/08/24 22:17 Pulse Rate 55 L 12/08/24 23:54 Respiratory Rate 17 12/08/24 23:54 Blood Pressure 136/71 12/08/24 23:54 Pulse Oximetry 97 12/08/24 23:57 Oxygen Delivery Room Air 12/08/24 23:57 <Zuleyka Blankenship APRN - Last Filed: 12/08/24 19:13> Vital Signs Temperature 36.6 C 12/08/24 17:15 Pulse Rate 66 12/08/24 17:15 Respiratory Rate 16 12/08/24 17:15 Blood Pressure 134/85 12/08/24 17:15 Pulse Oximetry 97 12/08/24 17:15 Oxygen Delivery Room Air 12/08/24 17:15 Temperature 36.7 C 12/08/24 22:17 Pulse Rate 55 L 12/08/24 23:54 Respiratory Rate 17 12/08/24 23:54 Blood Pressure 136/71 12/08/24 23:54 Pulse Oximetry 97 12/08/24 23:57 Oxygen Delivery Room Air 12/08/24 23:57 <Gab Covarrubias MD - Last Filed: 12/09/24 01:19> Medical Decision Making MDM Narrative Medical decision making narrative: 34-year-old male with history of asthma as well as allergic rhinitis and seasonal allergies presenting to the emergency department for mild shortness of breath. He is slightly wheezy but not in respiratory distress, states that he has been working and knows that he has gotten some red itchy eyes and contributed to allergies that may have triggered his asthma. He is otherwise well-appearing not in any acute distress. Suspicion for allergic rhinitis, seasonal allergies that triggered his mild asthma. He was given a nebulizer treatment as well as oral prednisone and re-evaluated. Patient states that he feels much better after treatments here and would like to go home. He will be given prescription medications for Claritin as well as prednisone for the next several days and a refill of a albuterol inhaler. Patient safely discharged encouraged to follow-up with regular doctor. <Gab Covarrubias MD - Last Filed: 12/09/24 01:19> Medical Records Medical records reviewed: Yes I reviewed the external patient's medical records. <Gab Covarrubias MD - Last Filed: 12/09/24 01:19> Vital Signs Vital Signs: Vital Signs Temperature 36.6 C 12/08/24 17:15 Pulse Rate 66 12/08/24 17:15 Respiratory Rate 16 12/08/24 17:15 Blood Pressure 134/85 12/08/24 17:15 Pulse Oximetry 97 12/08/24 17:15 Oxygen Delivery Room Air 12/08/24 17:15 Temperature 36.7 C 12/08/24 22:17 Pulse Rate 55 L 12/08/24 23:54 Respiratory Rate 17 12/08/24 23:54 Blood Pressure 136/71 12/08/24 23:54 Pulse Oximetry 97 12/08/24 23:57 Oxygen Delivery Room Air 12/08/24 23:57 <Zuleyka Blankenship BOOKKEEPER ASSISTANT - Last Filed: 12/08/24 19:13> Vital Signs Temperature 36.6 C 12/08/24 17:15 Pulse Rate 66 12/08/24 17:15 Respiratory Rate 16 12/08/24 17:15 Blood Pressure 134/85 12/08/24 17:15 Pulse Oximetry 97 12/08/24 17:15 Oxygen Delivery Room Air 12/08/24 17:15 Temperature 36.7 C 12/08/24 22:17 Pulse Rate 55 L 12/08/24 23:54 Respiratory Rate 17 12/08/24 23:54 Blood Pressure 136/71 12/08/24 23:54 Pulse Oximetry 97 12/08/24 23:57 Oxygen Delivery Room Air 12/08/24 23:57 <Gab Covarrubias MD - Last Filed: 12/09/24 01:19> Discharge Plan Discharge Clinical Impression: Asthma, Allergic rhinitis <Zuleyka Blankenship BOOKKEEPER ASSISTANT - Last Filed: 12/08/24 19:13> Patient Disposition: Home <Zuleyka Blankenship APRN - Last Filed: 12/08/24 19:13> Condition: Stable <Zuleyka Blankenship BOOKKEEPER ASSISTANT - Last Filed: 12/08/24 19:13> Instructions: Antibiotic Form, Asthma (DC), Allergies (ED) <Zuleyka Blankenship BOOKKEEPER ASSISTANT - Last Filed: 12/08/24 19:13> Additional Instructions: Follow-up with regular primary care provider, take the steroids daily for the next several days and Claritin daily. <Zuleyka Blankenship APRN - Last Filed: 12/08/24 19:13> Patient Language: Rwandan <Zuleyka Blankenship BOOKKEEPER ASSISTANT - Last Filed: 12/08/24 19:13> Prescriptions: New albuterol sulfate 2.5 mg /3 mL (0.083 %) solution for nebulization 2.5 mg inhalation Q4H PRN (Reason: shortness of breath or wheezing) Qty: 90 0RF loratadine [Claritin] 10 mg tablet 10 mg PO DAILY PRN (Reason: allergic symptoms) Qty: 30 0RF prednisone 50 mg tablet 50 mg PO DAILY 5 Days Qty: 5 0RF No Action loratadine 10 mg Tablet 10 mg PO QAM Qty: 90 0RF albuterol sulfate 90 mcg/actuation HFA aerosol inhaler 2 puff inhalation QID PRN (Reason: shortness of breath or wheezing) Qty: 8.5 0RF fluticasone furoate-vilanterol [Breo Ellipta] 100-25 mcg/dose blister with device 1 inh inhalation DAILY Qty: 60 0RF Rx Instructions: Take one inhalation daily to prevent asthma exacerbation fluticasone propionate [Flonase Allergy Relief] 50 mcg/actuation spray,suspension 1 spray intranasal BID Qty: 16 0RF Rx Instructions: administer into each nostril budesonide-formoterol [Symbicort] 160-4.5 mcg/actuation HFA aerosol inhaler 2 puff inhalation Q12H Qty: 10.2 0RF prednisolone 5 mg (48 tabs) tablets,dose pack See Rx Instructions .ROUTE .COMPLEX Qty: 1 0RF Rx Instructions: orally per package directions methylprednisolone [Medrol (Hilario)] 4 mg tablets,dose pack See Rx Instructions .ROUTE .COMPLEX Qty: 21 0RF Rx Instructions: for 6 days <Zuleyka Blankenship APRN - Last Filed: 12/08/24 19:13> Follow-up/Referrals: PHYSICIAN NOT ON STAFF,NONSTAFF [Primary Care Provider] - <Zuleyka Blankenship BOOKKEEPER ASSISTANT - Last Filed: 12/08/24 19:13> Time of Disposition: 01:19 <Zuleyka Blankenship APRN - Last Filed: 12/08/24 19:13> 01:19 <Gab Covarrubias MD - Last Filed: 12/09/24 01:19>
[2024-12-08] MEDS: predniSONE 20 MG TABLET 40 MG PO (21:59)
[2024-12-08] MEDS: IPRATROPIUM 0.5 MG/ALBUTEROL SULFATE 2.5 MG AMPUL.NEB 3 ML INHALATION (22:48)
[2024-12-09 01:50] VITALS: BP 129/72; PULSE 66; RESP 17; O2SAT 98
[2024-12-09 01:51] VITALS: BP 129/72; PULSE 66; RESP 17; O2SAT 98
== END 2024-12-09 01:53 | disposition home or self-care (01) ==
PROVIDERS: Emergency Provider Student in an Organized Health Care Education/Training Program
DX: J45.909 Unspecified asthma, uncomplicated (principal); Z87.891 Personal history of nicotine dependence
CPT/HCPCS: 94640; 99283; J7512

== ENCOUNTER 2025-06-20 07:34 | Emergency (ER) | payer SELFPAY ==
--- NOTE | ~2025-06-20 | XR_ITS ---
Examination: XR chest 1V portable Clinical History: Wheezing Comparison: 11/24/2024 Technique: Portable AP Findings: Heart size normal. Lungs clear. No acute bony abnormality. IMPRESSION: 1. No acute cardiopulmonary findings given portable technique. Reviewed, dictated and finalized at location R. PER [employer] AND EXAMINER SOFT WORK
[2025-06-20 07:38] VITALS: BP 130/79; PULSE 65; RESP 18; TEMP 36.9; O2SAT 100
[2025-06-20 07:47] VITALS: O2SAT 100
[2025-06-20 08:45] LABS: Strep Group A RT-PCR NOT DETECTED (Negative)
[2025-06-20 08:56] LABS: Influenza A QL RT-PCR Negative (Negative); Influenza B QL RT-PCR Negative (Negative); RSV RNA, RT-PCR Negative (Negative); SARS-CoV-2 RNA PCR Negative (Negative)
[2025-06-20 10:45] VITALS: RESP 22
[2025-06-20] MEDS: IPRATROPIUM 0.5 MG/ALBUTEROL SULFATE 2.5 MG (BASE) AMPUL.NEB 3 ML 6 ML INHALATION (10:46)
[2025-06-20 10:59] VITALS: RESP 19
[2025-06-20] MEDS: dexAMETHasone SOD PHOS INJ 10 MG/ML 1 ML VIAL IM (11:03)
--- NOTE | 2025-06-20 11:16 | ED_ITS ---
HPI - General Adult General Chief complaint: Upper Respiratory Infection Stated complaint: ST, cough, cold symptoms Time Seen by Provider: 06/20/25 07:48 History of Present Illness HPI narrative: This is a 35-year-old male with a history of reactive airway disease presenting for URI symptoms. Patient says over last 3-4 days he has been having a cough and rhinorrhea. He has also developed some wheezing. He has developed wheezing in the past when he has developed cold. He does not have any fevers chest pain abdominal pain nausea vomiting or diarrhea Related Data Allergies Allergy/AdvReac Type Severity Reaction Status Date / Time No Known Allergies Allergy Verified 06/20/25 07:48 [facility], [facility] Past Medical History Medical History Asthma Family History Family History Other Family history non-contributory Social History Social History Smoking packs per day: 0.25 Smoking cigarettes per day: 5.0 Years smoked: 8 Smoking pack-years: 2.00 Smoking status: Former smoker Tobacco type: cigarettes Smoking end date: 07/26/22 Alcohol intake: never Substance use: never Lack of Transportation: No Lack of Food: Never True Current Housing: I Have Housing Concerned About Future Housing: No Difficulty Paying Gas/Electric Bills: No Difficulty Paying for Meds: No Currently Unemployed: No Education: High School Diploma/GED Difficulty w/ Childcare or Family Care: No Spiritual care concerns: No Exam Narrative: APPEARANCE: No apparent distress. Head: atraumatic. EYES: EOMI, NOSE: Atraumatic NECK: Trachea midline RESPIRATORY: No increased rate of breathing, speaking full sentences, mild end- expiratory wheezing CARDIOVASCULAR: RRR, no peripheral edema ABDOMINAL: Non-distended soft nontender MUSCULOSKELETAl: No obvious deformities NEURO: Alert. Moving 4/4 extremities SKIN:: Warm, dry. Normal color PSYCHIATRIC: Normal affect Course Vital Signs Vital signs: Vital Signs Temperature 98.5 F 06/20/25 07:38 Pulse Rate 65 06/20/25 07:38 Respiratory Rate 18 06/20/25 07:38 Blood Pressure 130/79 06/20/25 07:38 Pulse Oximetry 100 06/20/25 07:38 Oxygen Delivery Room Air 06/20/25 07:38 Temperature 98.5 F 06/20/25 07:38 Pulse Rate 65 06/20/25 07:38 Respiratory Rate 19 06/20/25 10:59 Blood Pressure 130/79 06/20/25 07:38 Pulse Oximetry 100 06/20/25 07:47 Oxygen Delivery Room Air 06/20/25 07:47 Medical Decision Making MDM Narrative Medical decision making narrative: -Course: 35-year-old male presenting with URI symptoms and mild wheezing. Given a breathing treatment shot dexamethasone. Viral swabs instruct throat neg ative. Chest x-ray negative for pneumonia. Patient will be discharged follow- up with primary care physician. Given return precautions for worsening shortness of breath or other signs pneumonia. -DDX includes but is not limited to: Viral syndrome, reactive airway disease, pneumonia Vital Signs Vital Signs: Vital Signs Temperature 98.5 F 06/20/25 07:38 Pulse Rate 65 06/20/25 07:38 Respiratory Rate 18 06/20/25 07:38 Blood Pressure 130/79 06/20/25 07:38 Pulse Oximetry 100 06/20/25 07:38 Oxygen Delivery Room Air 06/20/25 07:38 Temperature 98.5 F 06/20/25 07:38 Pulse Rate 65 06/20/25 07:38 Respiratory Rate 19 06/20/25 10:59 Blood Pressure 130/79 06/20/25 07:38 Pulse Oximetry 100 06/20/25 07:47 Oxygen Delivery Room Air 06/20/25 07:47 Lab Data Labs: Lab Results 06/20/25 Range/Units 08:07 Influenza A (RT-PCR) Negative (Negative) Influenza B (RT-PCR) Negative (Negative) RSV (RT-PCR) Negative (Negative) SARS-CoV-2 RNA (RT-PCR) Negative (Negative) Group A Strep (PCR) Not detected (Negative) Discharge Plan Discharge Clinical Impression: URI (upper respiratory infection), Mild reactive airways disease Patient Disposition: Home Condition: Stable Instructions: Antibiotic Form, Acute Bronchitis (ED) Additional Instructions: You were seen in the emergency department for wheezing. Please use your inhaler every 4 hours as needed. If you develop worsening shortness of breath, chest pain or fevers please return to the ED for re-evaluation. Patient Language: Latvian Prescriptions: New albuterol sulfate [Ventolin HFA] 90 mcg/actuation HFA aerosol inhaler 1 inh inhalation QID PRN (Reason: shortness of breath or wheezing) Qty: 8.5 0RF No Action loratadine 10 mg Tablet 10 mg PO QAM Qty: 90 0RF albuterol sulfate 90 mcg/actuation HFA aerosol inhaler 2 puff inhalation QID PRN (Reason: shortness of breath or wheezing) Qty: 8.5 0RF fluticasone furoate-vilanterol [Breo Ellipta] 100-25 mcg/dose blister with device 1 inh inhalation DAILY Qty: 60 0RF Rx Instructions: Take one inhalation daily to prevent asthma exacerbation fluticasone propionate [Flonase Allergy Relief] 50 mcg/actuation spray,suspension 1 spray intranasal BID Qty: 16 0RF Rx Instructions: administer into each nostril budesonide-formoterol [Symbicort] 160-4.5 mcg/actuation HFA aerosol inhaler 2 puff inhalation Q12H Qty: 10.2 0RF prednisolone 5 mg (48 tabs) tablets,dose pack See Rx Instructions .ROUTE .COMPLEX Qty: 1 0RF Rx Instructions: orally per package directions methylprednisolone [Medrol (Hilario)] 4 mg tablets,dose pack See Rx Instructions .ROUTE .COMPLEX Qty: 21 0RF Rx Instructions: for 6 days albuterol sulfate 2.5 mg /3 mL (0.083 %) solution for nebulization 2.5 mg inhalation Q4H PRN (Reason: shortness of breath or wheezing) Qty: 90 0RF loratadine [Claritin] 10 mg tablet 10 mg PO DAILY PRN (Reason: allergic symptoms) Qty: 30 0RF prednisone 50 mg tablet 50 mg PO DAILY 5 Days Qty: 5 0RF Follow-up/Referrals: PHYSICIAN,URGENT CARE NURSE PRACTITIONER [Primary Care Provider, Internal Medicine]
[2025-06-20 11:32] VITALS: BP 126/74; PULSE 78; RESP 15; O2SAT 98
== END 2025-06-20 11:33 | disposition home or self-care (01) ==
PROVIDERS: Emergency Provider Emergency Medicine
DX: J06.9 Acute upper respiratory infection, unspecified (principal); J45.909 Unspecified asthma, uncomplicated; Z87.891 Personal history of nicotine dependence
CPT/HCPCS: 71045; 87637; 87651; 94640; 96372; 99283; J1100